=== PATIENT | male | born 1940 | race Caucasian/White ===

== ENCOUNTER 2016-10-22 08:18 | Inpatient (IN) | payer OTHER, MEDICARE ==
[~2016-10-22] VITALS: Ht 182.9 cm; Wt 122.5 kg
--- NOTE | 2016-10-22 08:27 | ED AMS/SEIZURE/WEAK/DIZZY ---
History of Present Illness General Chief Complaint: General Adult Stated Complaint: FALL/DEPRESSED/ Source: patient, family, EMS Exam Limitations: no limitations Vital Signs & Intake/Output Vital Signs & Intake/Output Vital Signs Date Time Temp Pulse Resp B/P B/P Pulse O2 O2 Flow FiO2 Mean Ox Delivery Rate 10/24 2200 97.8 67 18 158/68 94 Room Air 10/24 1600 99.2 70 20 132/84 10/24 1600 94 Room Air 10/24 1515 99.2 70 20 132/84 94 Room Air 10/24 0924 73 157/68 10/24 0800 98.7 84 20 130/62 ED Intake and Output 10/25 0000 10/24 1200 Intake Total 1240 550 Output Total 900 350 Balance 340 200 Intake, IV 450 Intake, Oral 1240 100 Number 1 Bowel Movements Output, Urine 900 350 Allergies Coded Allergies: ciprofloxacin (From C[facility]RO) (UNKNOWN 10/22/16) vancomycin (UNKNOWN 10/22/16) Triage Nurses Notes Reviewed? 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 we'll to get up. EMS states that while patient was being transported to ER he was stating "I want to I want to ." Patient on initial examination was very tearful and complaining of pain all over however patient in state that there was no traumatic injury that occurred today. also states that patient has not been eating well lately and has had black dark stools. Patient denies any fever chills headaches neck pain back pain abdominal pain chest pain shortness of breath cough nausea or vomiting. Again patient is stating that "I don't want to live anymore" Patient had been on the ground for approximate 5 minutes (VIANNEY BLACK) Reconcile Medications Baclofen 10 MG TABLET 1 TAB PO DAILY MUSCLE SPASMS (Reported) Digoxin 125 MCG TABLET 1 TAB PO DAILY HEART (Reported) Doxazosin Mesylate 2 MG TABLET 1 TAB PO DAILY HEART (Reported) Folic Acid 1 MG TABLET 1 TAB PO DAILY SUPPLEMENT (Reported) Mupirocin 2 % OINT...G. 1 GARY TOP D SKIN PROBLEMS (Reported) apply to affected area(s): LEFT SCAPULA AREA GROWTH Spironolactone 50 MG TABLET 1 TAB PO DAILY WATER RETENTION (Reported) Warfarin Sodium 2 MG TABLET 1 TAB PO 1700 BLOOD THINNER (Reported) (BETHEL RUTLEDGE DO) Past History Travel History Traveled to [place] past 21 day No Medical History Any Pertinent Medical History? see below for history Neurological: NONE EENT: NONE Cardiovascular: AFIB, hypertension Respiratory: NONE Gastrointestinal: NONE Hepatic: NONE Renal: NONE Musculoskeletal: NONE Psychiatric: NONE Endocrine: NONE Blood Disorders: NONE Cancer(s): NONE PUBLIC WORKS MANAGER/Reproductive: NONE Surgical History Surgical History: LEFT BKA Psychosocial History What is your primary language Kinyarwanda Tobacco Use: Never used ETOH Use: denies use Illicit Drug Use: denies illicit drug use Family History Hx Contributory? No (VIANNEY BLACK) Review of Systems Review of Systems Constitutional: Reports: see HPI, malaise, weakness. EENTM: Reports: no symptoms. Respiratory: Reports: no symptoms. Cardiovascular: Reports: no symptoms. GI: Reports: see HPI, changes in stool. Genitourinary: Reports: no symptoms. Musculoskeletal: Reports: no symptoms. Skin: Reports: no symptoms. Neurological/Psychological: Reports: no symptoms. Hematologic/Endocrine: Reports: no symptoms. Immunologic/Allergic: Reports: no symptoms. All Other Systems: Reviewed and Negative (VIANNEY BLACK) Physical Exam Physical Exam General Appearance: anxious, mild distress, TEARFUL Head: atraumatic Eyes: Bilateral: normal appearance, PERRL. Ears, Nose, Throat: hearing grossly normal Neck: normal inspection Respiratory: normal breath sounds, chest non-tender Cardiovascular: irregularly irregular Gastrointestinal: normal bowel sounds, soft, non-tender, no organomegaly Rectal: heme negative stool, black stool Extremities: LEFT BKA WITH PROSTHETIC Neurologic/Psych: awake, alert Diagram Body: 1) 2 CM OPEN SKIN ULCER WITH PRONOUNCE PINK SOFT TISSUE, NO TENDERNESS, D/C OR SURROUNDING ERYTHEMA 2) NOTE SUPERFICIAL SKIN ABRASION, AND BRUISING NONTENDER, NO ACTIVE BLEEDING Core Measures ACS in differential dx? No CVA/TIA Diagnosis: No Severe Sepsis Present: No Septic Shock Present: No (KRYSTLE MARES,VIANNEY) Progress Differential Diagnosis: arrythmia, alcohol intoxication, anemia, benign positional vertigo, CVA/stroke, dehydration, drug intoxication, encephalitis, electrolyte imbalance, GI bleed, hypoglycemia, hypoxia, intracranial Hem., intracranial mass/tumor, labrynthitis, meningitis, Meniere's disease, migraine ZAVALETA, multiple sclerosis, pneumonia, postural hypotension, presyncope, post- traumatic vertigo, sepsis, seizure disorder, subarachnoid Hem., UTI/pyelo, vertebrobasilar insuff Plan of Care: Orders Procedure Date/time Status PROTHROMBIN TIME 10/25 0600 Active Continuous Observation Monitor 10/25 0018 Active Precautions 10/24 205 Active LACTIC ACID 10/24 1056 Complete Lab Add-on Test 10/24 UNK Active THYROID STIMULATING HORMONE 10/23 0635 Complete TOTAL TRIODOTHYROXINE 10/23 0635 Complete FREE T4 10/23 0635 Complete Current Medications Sig/Rush Start time Last Medication Dose Stop Time Status Admin Melatonin 5 MG AT BEDTIME 10/24 2200 AC 10/24 (Melatonin) 2331 Cyanocobalamin 1,000 MCG DAILY 10/24 1052 AC 10/24 (Vitamin B12) 1234 Mupirocin 1 GARY DAILY 10/23 1445 AC 10/24 (Bactroban) 0929 Digoxin 0.125 MG DAILY 10/23 1000 AC 10/24 (Lanoxin) 0924 Spironolactone 50 MG DAILY 10/23 1000 AC 10/24 (Aldactone) 0923 Morphine Sulfate 2 MG Q4 PRN 10/23 0350 AC 10/25 (Morphine) 0623 Lorazepam 0 Q1P PRN 10/22 2230 AC 10/22 (Ativan) 2302 Nystatin 1 GARY TID PRN 10/22 2215 AC 10/23 (Mycostatin) 0830 Tramadol HCl 50 MG Q4P PRN 10/22 1415 AC 10/25 (Ultram) 0107 Doxazosin Mesylate 2 MG DAILY 10/22 1339 AC 10/24 (Cardura) 0924 Acetaminophen 650 MG Q6PRN PRN 10/22 1145 AC 10/22 (Tylenol) 2041 Laboratory Tests 10/24/16 1300: Lactic Acid 1.3 On initial examination patient was significantly in distress and anxious however no traumatic injury has occurred. After morphine was administered patient is still anxious and in distress in which Ativan will be administered. Patient's bilateral upper extremity and lower extremities were unremarkable on exam Patient's physical exam findings were unremarkable upon palpation for concerns of fracture 10/22/2016 10:28:14 AM reevaluation the patient, patient currently is in no apparent distress and is no longer anxious and is resting comfortably at bedside. Patient had dark stools noted however fecal occult was negative There was sitter placed on patient due to suicide ideation, Patient was able to eat a meal in the emergency room and patient was given IV fluid resuscitation. Patient had improvement of lactic acidosis however is still elevated. Patient then tried to ambulate under nursing supervision in my supervision however he was able to weight bear however was unable to perform gait in which he has significant gait instability and fall risk Patient is unsafe to return home and his current medical condition has made patient unable to perform home ADL'S Due to patient's elevated lactic acidosis and concern of fall risk that outpatient treatment would be medically harmful. Patient also requires inpatient psychiatric evaluation, case management, nutrition consultation, physical therapy consultation, repeat labs, IV fluid resuscitation, (VIANNEY BLACK) Diagnostic Imaging: Viewed by Me: Radiology Read. CXR Impression: no acute abnormality, no infiltrates, normal size heart Initial ED EKG: AFIB, AFIB Comments: PATIENT: SCOTT RODRÍGUEZ PRESENT AGE: 76 PATIENT ACCOUNT NO: [id number] : 42 LOCATION: [facility] ORDERING PHYSICIAN: VIANNEY MARES SERVICE DATE: 10/22/16 EXAM TYPE: RAD - XRY-PORTABLE CHEST XRAY EXAMINATION: XR PORTABLE CHEST CLINICAL INFORMATION: Weakness COMPARISON: 02/24/2011 TECHNIQUE: Portable frontal view of the chest was obtained. FINDINGS: The lungs are well expanded. There is a hazy opacity at the left lung base. No edema or effusion. No dense consolidation.. No pneumothorax. The cardiomediastinal silhouette is within normal limits. No acute osseous abnormality. IMPRESSION: Hazy left basilar opacity favors atelectasis. No dense consolidation. (VIANNEY BLACK) Departure Departure Disposition: STILL A PATIENT Condition: Critical Clinical Impression Primary Impression: Lactic acidosis Secondary Impressions: Fall, Gait instability, Skin abrasion, Suicide ideation Referrals: SHEIKH Troy NORMAN (PCP) Departure Forms: Customer Survey General Discharge Information Admission Note Spoke With: KAVYA WEBBER MD Documentation of Exam: Documentation of any treatments & extenuating circumstances including Concerns Regarding Discharge (functional status, medication knowledge or non-compliance, living conditions, etc.) that warrant an admission rather than observation: [ Discussed patient with Dr. WEBBER who agrees with general medicine admission for concerns of lactic acidosis, gait instability and fall risk in which patient requires repeat labs, IV fluid resuscitation, psychiatric evaluation, attritional consultation, physical therapy consultation outpatient treatment at this time due to considerable fall risk would be medically harmful] (VIANNEY BLACK) Admission Note Documentation of Exam: Documentation of any treatments & extenuating circumstances including Concerns Regarding Discharge (functional status, medication knowledge or non-compliance, living conditions, etc.) that warrant an admission rather than observation: PA/[employer] Co-Sign Statement Statement: ED Attending supervision documentation- [X] I saw and evaluated the patient. I have also reviewed all the pertinent lab results and diagnostic results. I agree with the findings and the plan of care as documented in the PA's/FORE[employer]TY COOK's documentation. [] I have reviewed the ED Record and agree with the PA's/FORE[employer] COOK's documentation. [] Additions or exceptions (if any) to the PAs/FORE[employer]OD SPECIALTY COOK's note and plan are summarized below: [] (MATY PATTERSON,BETHEL Small) Critical Care Note Critical Care Note Critical Care Time: 30-74 min (VIANNEY BLACK) inpatient psychiatric evaluation, case management, nutrition consultation, physical therapy consultation, repeat labs, IV fluid resuscitation, (VIANNEY BLACK) Diagnostic Imaging: Viewed by Me: Radiology Read. CXR Impression: no acute abnormality, no infiltrates, normal size heart Initial ED EKG: AFIB, AFIB Comments: PATIENT: SCOTT RODRÍGUEZ PRESENT AGE: 76 PATIENT ACCOUNT NO: [id number] : 42 LOCATION: [facility] ORDERING PHYSICIAN: VIANNEY MARES SERVICE DATE: 10/22/16-1018 EXAM TYPE: RAD - XRY-PORTABLE CHEST XRAY EXAMINATION: XR PORTABLE CHEST CLINICAL INFORMATION: Weakness COMPARISON: 02/24/2011 TECHNIQUE: Portable frontal view of the chest was obtained. FINDINGS: The lungs are well expanded. There is a hazy opacity at the left lung base. No edema or effusion. No dense consolidation.. No pneumothorax. The cardiomediastinal silhouette is within normal limits. No acute osseous abnormality. IMPRESSION: Hazy left basilar opacity favors atelectasis. No dense consolidation. Departure Departure Disposition: STILL A PATIENT Condition: Critical Clinical Impression Primary Impression: Lactic acidosis Secondary Impressions: Fall, Gait instability, Skin abrasion, Suicide ideation Referrals: SHEIKH Troy NORMAN (PCP) Departure Forms: Customer Survey General Discharge Information Admission Note Spoke With: KAVYA WEBBER MD Documentation of Exam: Documentation of any treatments & extenuating circumstances including Concerns Regarding Discharge (functional status, medication knowledge or non-compliance, living conditions, etc.) that warrant an admission rather than observation: [ Discussed patient with Dr. WEBBER who agrees with general medicine admission for concerns of lactic acidosis, gait instability and fall risk in which patient requires repeat labs, IV fluid resuscitation, psychiatric evaluation, attritional consultation, physical therapy consultation outpatient treatment at this time due to considerable fall risk would be medically harmful] Critical Care Note Critical Care Note Critical Care Time: 30-74 min
--- NOTE | 2016-10-22 08:38 | NUR ---
76 YEAR OLD MALE TO ER VIA AMBULANCE FROM HIS HOME AFTER A FALL. PT NOTED TO BE CRYING ON ARRIVAL AND STATES THAT HE JUST WANTS TO . PT NOTED WITH PROSTESIS TO LLE FROM [facility] IN 2008. PT WAS TRYING TO TRANSFER FROM WHEEL CHAIR WHEN HE SLIPPED AND FELL TO THE FLOOR, DENIES HITTING HIS HEAD. STATES THAT FOR THE PAST WEEK PT HAS HAD NO APPETITE HAS BEEN CRYING NON STOP AND PRAYING TO GOD TO " PLEASE LET ME ". PTS VISIBLY UPSET AND CRYING . DENIES CP/SOB/ABD PAIN TO THIS NURSE
[2016-10-22] MEDS ORDERED: BACLOFEN10 M1 PO (08:41)
[2016-10-22] MEDS ORDERED: WARFARIN SODIUM2 M1 PO (08:41)
[2016-10-22] MEDS ORDERED: DIGOXIN125 MCG PO (08:42)
[2016-10-22] MEDS ORDERED: FOLIC ACID1 M1 PO (08:42)
[2016-10-22] MEDS ORDERED: DOXAZOSIN MESYLA2 M1 PO (08:42)
[2016-10-22] MEDS ORDERED: SPIRONOLACTONE50 M1 PO (08:43)
--- NOTE | 2016-10-22 09:08 | NUR ---
IV PLACED AND PT MEDICATED WITH MORPHINE PER ORDER FOR COMPLAINTS OF 10/10 ALL OVER BODY PAIN. REMAINS AT BEDSIDE
[2016-10-22 09:28] LABS: ABSOLUTE BASOPHIL COUNT 0 /CUMM (0.0-0.2); ABSOLUTE EOSINOPHIL COUNT 0.1 /CUMM (0.0-0.7); ABSOLUTE GRANULOCYTE CT 4.1 /CUMM (1.4-6.5); ABSOLUTE LYMPH COUNT 1.9 /CUMM (1.2-3.4); ABSOLUTE MONOCYTE COUNT 0.6 /CUMM (0.10-0.60); BASOPHIL % 0.6 % (0.0-2.0); EOSINOPHIL % 1.3 % (0-5); GRANULOCYTE % 61.5 % (42.2-75.2); HEMATOCRIT 41.9 % (42-52); MEAN CORPUSCULAR HGB 31.4 PG (27.0-31.0); MEAN CORPUSCULAR HGB CONC 33.2 G/DL (33.0-37.0); MEAN CORPUSCULAR VOLUME 94.3 FL (80.0-94.0); MEAN PLATELET VOLUME 7.6 FL (7.4-10.4); PLATELET COUNT 249 /CUMM (130-400); RBC DISTRIBUTION WIDTH 16.2 % (11.5-14.5); RED BLOOD CELL CT 4.44 /CUMM (4.70-6.10); WHITE BLOOD CELL COUNT 6.7 /CUMM (4.8-10.8)
[2016-10-22 09:41] LABS: PTT 58 SEC (25-37)
--- NOTE | 2016-10-22 09:43 | NUR ---
PT MOVED TO EKG [place] TO USE URINAL AT THIS TIME.
--- NOTE | 2016-10-22 09:49 | NUR ---
CRITICAL TEST RESULTS [id number] SCOTT RODRÍGUEZ 76 M TESTS AND RESULTS: PT 59.0 INR 5.72 Results received and read back by: EDUARDO GRANADOS Results received date and time: 10/22/16 0949 The following provider was notified of the results, and read the results back: VIANNEY MARES Notified date and time: 10/22/16 at 0949
--- NOTE | 2016-10-22 10:12 | NUR ---
CRITICAL TEST RESULTS [id number] SCOTT RODRÍGUEZ 76 M TESTS AND RESULTS: LACTIC ACID 4.9 Results received and read back by: MICHELLE MENDIETA Results received date and time: 10/22/16 1012 The following provider was notified of the results, and read the results back: SUZAN DALTON & ARYAN CLAIRE Notified date and time: 10/22/16 at 1012
--- NOTE | 2016-10-22 10:20 | NUR ---
PT MEDICATED WITH ATIVAN PER ORDER FOR INCREASED ANXIETY, PT CONTINUES TO CRY AND STATES " I JUST WANT TO " SITTER WITH PT AND PTS AT BEDSIDE AT THIS TIME. PA DISCUSSED PLAN OF CARE WITH PT
--- NOTE | 2016-10-22 10:31 | NUR ---
2ND LITER NS BOLUS INFUSING AT THIS TIME. PT TRYING TO VOID IN URINAL. REMAINS AT BEDSIDE
--- NOTE | 2016-10-22 10:40 | RADIOLOGY REPORT ---
EXAMINATION: XR PORTABLE CHEST CLINICAL INFORMATION: Weakness COMPARISON: 02/24/2011 TECHNIQUE: Portable frontal view of the chest was obtained. FINDINGS: The lungs are well expanded. There is a hazy opacity at the left lung base. No edema or effusion. No dense consolidation.. No pneumothorax. The cardiomediastinal silhouette is within normal limits. No acute osseous abnormality. IMPRESSION: Hazy left basilar opacity favors atelectasis. No dense consolidation.
--- NOTE | 2016-10-22 11:24 | NUR ---
HOUSE STAFF AT [facility], PT NOTED WITH A 2 X2.5 CM GROWTH TO L UPPER SHOULDER THAT HAS SMALL AMOUNT OF BLOODY DRAINAGE, STATES THAT PT WAS SEEN 4 MONTHS AGO FOR THIS AND WAS TOLD TO FOLLOW UP WITH A SIEBEL SOLUTION ARCHITECT, STATES THAT SHE HAS BEEN UNABLE TO DO THIS. PT ALSO NOTED WITH BRUISING TO R SIDE BACK, IS UNSURE IF IT HAPPENED THIS AM WHEN PT FELL TRANSFERRING. PT SKIN VERY DRY AND NOTED WITH MULTIPLE SCABBED SCRATCH POWELL ALL OVER BODY , COMPLAINS OF DRY SKIN.
--- NOTE | 2016-10-22 11:49 | NUR ---
SECOND LACTIC SENT AT 1146.
--- NOTE | 2016-10-22 11:57 | History & Physical ---
ALYSSA MOSHER 10/22/16 1157: General Information and HPI MD Statement: I have seen and personally examined SCOTT BOYER and documented this H&P. The patient is a 76 year old M who presented with a patient stated chief complaint of fall Source of Information: family Exam Limitations: unable to give history, dementia History of Present Illness: 76-year-old gentleman with past medical history significant for dementia, hypertension, A. fib on Coumadin, neuropathy, severe peripheral vascular disease status post right leg above-knee amputation in 2008. BiBA for evaluation of unwitnessed fall. provided majority of the history as patient was not able to remember much. Earlier today when he was transferring from the chair to his wheelchair apparently his leg gave way and he fell. Denies loss of consciousness, dizziness, palpitations, head strike. His witnessed the entire episode. She called the son to help him up. About a week ago he had a similar fall however at that time felt that he was more confused. seems to think that he might have had TIA in the past specifically in May of this year when he had a transient episode of speech disturbances. However patient did not wish to follow-up with her doctor regarding this. Family has noticed a progressive worsening weakness since the past year however it has been more remarkable since past 1 week. One week prior he was ambulating with a cane. He reports very poor appetite specifically since the past 3 days. He has only been drinking alcohol daily. His last drink was 3 PM yesterday where he had 89 ounces 04, and 2-3 glasses of wine. He is a chronic drinker however has never been admitted for detox at any hospital and no history of DTs or seizures. He has also not taken any of his regular medications since the past 3 days. Also reports also 2 week history of black stools, denies bright red blood per rectum, abdominal pain, nausea, vomiting, fever, chills. Per family as well as the patient he is very calm very severely depressed and often times prays at night that he may . Denies any active suicidal ideations or any active plans to harm himself or others. His had most of his care with Dr. Clemons who is a rim fire priming operator at [employer], His is also concerned about a growth on his back of 4 months duration. She is also his only primary caregiver and they have no services at home as the patient refuses to have any. She is under a lot of stress at this time and feel like she is unable to take care of him. is POA and she can be reached at [phone] Allergies/Medications Allergies: Coded Allergies: ciprofloxacin (From CIPRO) (UNKNOWN 10/22/16) vancomycin (UNKNOWN 10/22/16) Compliance With Home Meds: POOR Past History Travel History Traveled to [place] past 21 day No Medical History Neurological: NONE EENT: NONE Cardiovascular: AFIB, hypertension Respiratory: NONE Gastrointestinal: NONE Hepatic: NONE Renal: NONE Musculoskeletal: NONE Psychiatric: NONE Endocrine: NONE Blood Disorders: NONE Cancer(s): NONE SENIOR INTERNET SALES CONSULTANT/Reproductive: NONE Isolation History: Standard Surgical History Surgical History: LEFT BKA Past Family/Social History Psychosocial History ETOH Use: alcoholic Illicit Drug Use: denies illicit drug use Name of POA/HCP: sofia boyer Functional Ability ADLs Needs Assist: dressing, eating, toileting, bathing. Ambulation: walker IADLs Needs Assist: shopping, housework, finances, food prep, telephone, transportation, medication admin. Employment History Employment Retired Review of Systems Review of Systems Constitutional: Denies: chills, diaphoresis, fever, malaise, weakness, unexplained weight loss. Cardiovascular: Denies: chest pain, edema, orthopena, palpitations, peripheral edema, syncope. Respiratory: Denies: cough, hemoptysis, orthopnea, short of breath, sputum production, stridor, wheezing. GI: Reports: changes in stool. Denies: abdominal pain, bloating, constipation, diarrhea, distention, bowel incontinence, melena, nausea, bloody stool, vomiting , steatorrhea. Genitourinary: Denies: discharge, dysuria, frequency, hematuria, hesitation, nocturia, pain, urgency. Skin: Reports: cysts. Exam & Diagnostic Data Last 24 Hrs of Vital Signs/I&O Vital Signs Date Time Temp Pulse Resp B/P B/P Pulse O2 O2 Flow FiO2 Mean Ox Delivery Rate 10/22 1459 97.5 76 18 131/62 96 Room Air 10/22 1453 97.5 76 18 131/62 10/22 1401 95 Room Air 10/22 1242 97.9 68 18 136/72 96 Room Air 10/22 1113 95 Room Air 10/22 1020 97.2 70 20 146/62 95 Room Air 10/22 0910 95 Room Air 10/22 0835 96.6 72 18 150/70 96 Intake & Output 10/22 1600 10/22 0800 10/22 0000 Intake Total 3150 Output Total Balance 3150 Intake, IV 3150 Intake, Oral 0 Patient 250 lb Weight Physical Exam General Appearance Alert, Oriented X3, Cooperative, No Acute Distress HEENT sluggishly reactive and small pupils Neck Supple Cardiovascular Normal S1, Normal S2, No Murmurs Lungs Clear to Auscultation, Normal Air Movement Abdomen Normal Bowel Sounds, Soft, No Tenderness Neurological Normal Speech, Strength at 5/5 X4 Ext, Cranial Nerves 3-12 NL, flapping tremor Extremities No Edema, Normal Pulses Last 24 Hrs of Labs/Calixto: Laboratory Tests 10/22/16 1551: 25-OH Vitamin D Total Pending 10/22/16 1146: Lactic Acid 3.9 H 10/22/16 1140: Lactate Dehydrogenase Cancelled 10/22/16 0950: Urine Opiates Screen 673.00, Methadone Screen < 40, Barbiturate Screen < 60, Ur Phencyclidine Scrn < 6.00, Amphetamines Screen < 100, U Benzodiazepines Scrn < 85, Urine Cocaine Screen < 50, Urine Cannabis Screen < 5.00, Urine Color STRAW, Urine Clarity CLEAR, Urine pH 6.0, Ur Specific Serena 1.010, Urine Protein NEG, Urine Ketones NEG, Urine Nitrite NEG, Urine Bilirubin NEG, Urine Urobilinogen 0.2, Ur Leukocyte Esterase NEG, Ur Microscopic EXAM NOT REQUIRED, Urine Hemoglobin NEG, Urine Glucose NEG 10/22/16 0905: Lactic Acid 4.9 H, PT 59.0 *H, INR 5.72 *H, APTT 58 H, CBC w Diff NO MAN DIFF REQ, RBC 4.44 L, MCV 94.3 H, MCH 31.4 H, RDW 16.2 H, MPV 7.6, Gran % 61.5, Lymphocytes % 28.0, Monocytes % 8.6, Eosinophils % 1.3, Basophils % 0.6, Absolute Granulocytes 4.1, Absolute Lymphocytes 1.9, Absolute Monocytes 0.6, Absolute Eosinophils 0.1, Absolute Basophils 0, PUBS MCHC 33.2, Digoxin < 0.4 L 10/22/16 0824: Anion Gap 18 H, Estimated GFR > 60, BUN/Creatinine Ratio 10.0, Glucose 110 H, Calcium 8.9, Total Bilirubin 0.7, AST 34, ALT 39, Alkaline Phosphatase 57, Troponin I 0.01, Total Protein 6.5, Albumin 3.7, Globulin 2.8, Albumin/Globulin Ratio 1.3, Amylase < 30 L, Lipase 81, Serum Alcohol 209.0, Urine Color Cancelled, Urine Clarity Cancelled, Urine pH Cancelled, Ur Specific Serena Cancelled, Urine Protein Cancelled, Urine Ketones Cancelled, Urine Nitrite Cancelled, Urine Bilirubin Cancelled, Urine Urobilinogen Cancelled, Ur Leukocyte Esterase Cancelled, Ur Microscopic Cancelled, Urine Hemoglobin Cancelled, Urine Glucose Cancelled Microbiology 10/22 0950 URINE ROUT: Urine Culture - RECD 10/22 904 BLOOD: Blood Culture - RECD 10/22 08 BLOOD: Blood Culture - RECD Diagnostic Data EKG Results afib, qtc 454 CXR Results FINDINGS: The lungs are well expanded. There is a hazy opacity at the left lung base. No edema or effusion. No dense consolidation.. No pneumothorax. The cardiomediastinal silhouette is within normal limits. No acute osseous abnormality. IMPRESSION: Hazy left basilar opacity favors atelectasis. No dense consolidation. Other Results SERVICE DATE: 10/22/16 EXAM TYPE: CAT - CT HEAD WO IV CONTRAST FINDINGS: There is no evidence of acute intracranial hemorrhage or territorial infarction. No abnormal mass effect or midline shift is seen. Maurice to white matter differentiation is well preserved. No extra-axial fluid collections are identified. No hydrocephalus. Proportional prominence of the ventricles and sulcal spaces is consistent with mild volume loss. There is no abnormal attenuation within the brain parenchyma. The osseous structures and soft tissues are normal. The mastoid air cells and visualized portions of the paranasal sinuses are well aerated. IMPRESSION: No acute intracranial pathology. Mild volume loss. Assessment/Plan Assessment: 76-year-old gentleman with past medical history significant for dementia, hypertension, A. fib on Coumadin, neuropathy, severe peripheral vascular disease status post right leg above-knee amputation in 2008. BiBA for evaluation of unwitnessed fall. Vitals on admission MAXIMUM TEMPERATURE 97.6 heart rate 70 blood pressure 1 46/ 62, saturating 95% on room air. Lab significant for hyponatremia, increased anion gap metabolic acidosis increased lactic acid supratherapeutic INR at 5.7 to, troponin negative normal LFTs. EKG showed A. fib with a QTC of 454. Chest x-ray and CT head were unremarkable. He will be admitted to the general medicine floor on the following issues will be addressed: As Ranked By This Provider Problem List: 1. Gait instability Assessment/Plan D/D deconditioning exacerbated by decreased by mouth intake and alcoholism versus vascular versus Alzheimer's dementia colostomy secondary to worsening of his neuropathy. Will follow-up CT head to rule out any bleed Follow-up vitamin D vitamin B12 PT to evaluate and treat 2. Lactic acidosis Assessment/Plan Metabolic acidosis with increased anion gap Most likely type B lactic acidosis as there is no clinical indication of sepsis or HF, most likely secondary to his alcoholism vs hypoperfusion (less likely as clinical euvolemic) Will hydrated and continue to trend lactic acid 3. A-fib Assessment/Plan will hold coumadin 2/2 to supratherapeutic INR, follow up INR daily continue home dose of digoxin Qualifiers Atrial fibrillation type: chronic Qualified Code: I48.2 - Chronic atrial fibrillation 4. EtOH dependence Assessment/Plan IV ativan per CIWA will start IV banana bag and MVI f/up utox 5. Severe depression Assessment/Plan will obtain psych consult does not need 1:1 sitter as he is not actively suicidal 6. Skin lesion Assessment/Plan 2cm x 2cm friable exophytic pinkish leision on right upper shouler will need to be evaluated by dermatology, which can be done as outpatient 7. DVT prophylaxis Assessment/Plan supratherapeutic INR ALPs 8. DNR (do not resuscitate) 9. DNI (do not intubate) Core Measures/Miscellaneous Acute Coronary Syndrome ACS Diagnosis: No Cerebrovascular Accident CVA/TIA Diagnosis: No Congestive Heart Failure CHF Diagnosis: No VTE (View Protocol) VTE Risk Factors: Age > 40, Immobility, paresis, Obesity No Mech VTE prophylaxis d/t: Amputee No VTE Pharm Prophylaxis d/t: Blood coag disorder, HIT- Hep Induc Thrombo VTE Diagnosis: No VTE Type: NONE VTE Confirmed by (Test): NONE Sepsis (View Protocol) Severe Sepsis Present: No Septic Shock Septic Shock Present: No Miscellaneous Documentation Attending Case Discussed With: CONNER PALACIOS M.D Primary Care Physician: SHEIKH Troy NORMAN Patient sees these Specialists none Level of Patient Care: General Medicine CONNER PALACIOS MD 10/22/16 1048: General Information and HPI Allergies/Medications Home Med list Baclofen 10 MG TABLET 1 TAB PO DAILY MUSCLE SPASMS (Reported) Digoxin 125 MCG TABLET 1 TAB PO DAILY HEART (Reported) Doxazosin Mesylate 2 MG TABLET 1 TAB PO DAILY HEART (Reported) Folic Acid 1 MG TABLET 1 TAB PO DAILY SUPPLEMENT (Reported) Mupirocin 2 % OINT...G. 1 GARY TOP D SKIN PROBLEMS (Reported) apply to affected area(s): LEFT SCAPULA AREA GROWTH Spironolactone 50 MG TABLET 1 TAB PO DAILY WATER RETENTION (Reported) Warfarin Sodium 2 MG TABLET 1 TAB PO 1700 BLOOD THINNER (Reported) Attending MD Review Statement Attending Statement Attending MD Statement: examined this patient, discuss w/resident/PA/WASHING MACHINE OPERATOR, agreed w/resident/PA/WASHING MACHINE OPERATOR, reviewed EMR data (avail), discussed with nursing, discussed with case mgmt, amended to note Attending Assessment/Plan: Patient seen and examined. Some 6-year-old male with history of atrial fibrillation on anticoagulation, neuropathy, status post left lower extremity amputation. Presents status post fall or transferring from his chair to walker according to the . Patient does not recollect circumstances that led to the fall. Denies any loss of consciousness. Denies any trauma. Family reports that he has become more deconditioned over the past few weeks with decreasing oral intake. reports that patient is significantly depressed. Initially make comments about suicide in the emergency room but stated that he is just frustrated with life. Patient denies any history of falls all the states he does fall on occasion. He denies dizziness. He denies palpitations. Denies chest pain. Reports poor oral intake. On examination he is alert and oriented 3 and not in any acute distress. He does have mild resting tremors. He has no focal neurologic deficit. Heart sounds are regular with no murmur. Lungs are clear to auscultation bilaterally. He has trace edema right lower extremity. Prosthetic is in place left lower extremity. Problems: 1. Fall; appears mechanical likely secondary to deconditioning. Patient also has underlying neuropathy and has been drinking alcohol heavily in the past few days. 2. Atrial fibrillation on anticoagulation with Coumadin. 3. Supratherapeutic INR. 4. Lactic acidosis; query etiology. Recommendations: -Admit to the inpatient general medical service. -Check orthostatic vitals. -Physical therapy and occupational therapy evaluation. Obtain baseline head CT. Obtain records from primary care provider. -Hold Coumadin for now. Monitor INR daily. -Hydrate with half normal saline at 1.5 mL an hour for 1 L. Repeat lactic acid level. -Place on CIWA scale with benzodiazepine therapy. Monitor closely for withdrawal. Check alcohol level. -Check vitamin B12 level. -Psychiatric consultation.
--- NOTE | 2016-10-22 12:39 | NUR ---
ATTEMPTED TO AMBULATE PATIENT. REPORTING "HE HASNT WALKED IN 2 WEEKS. HE TRIED TO STAND TODAY TO GET IN THE WHEELCHAIR AND HE FELL. I DONT SEE THE POINT". SUZAN DALTON INFORMED OF SAME.
--- NOTE | 2016-10-22 12:43 | NUR ---
CRITICAL TEST RESULTS [id number] SCOTT RODRÍGUEZ 76 M TESTS AND RESULTS: LACTIC ACID 3.9 Results received and read back by: EDUARDO GRANADOS Results received date and time: 10/22/16 1243 The following provider was notified of the results, and read the results back: Ladarius MARES Notified date and time: 10/22/16 at 1230
--- NOTE | 2016-10-22 12:58 | NUR ---
PT AMBULATED WITH WALKER, PT ABLE TO BARE WEIGHT BUT NOTED TO BE VERY UNSTEADY AND WEAK. PT TOOK A FEW STEPS WITH WALKER AND THEN STATED THAT HE NEEDED TO SIT DUE TO HE FELT SOB.
--- NOTE | 2016-10-22 13:59 | NUR ---
PHARMACY CALLED FOR MEDS. PT CONTINUES TO RE ST ON STRETCHER. IV FLUIDS INFUSING.
--- NOTE | 2016-10-22 14:09 | NUR ---
PT TO CT SCAN AT THIS TIME VIA WHEEL CHAIR.
--- NOTE | 2016-10-22 14:16 | NUR ---
PHARMACY WILL CALL WHEN MEDS ARE READY
--- NOTE | 2016-10-22 14:30 | CT SCAN REPORT ---
EXAMINATION: CT HEAD WITHOUT CONTRAST CLINICAL INFORMATION: Confusion. Rule out bleed. COMPARISON: None. TECHNIQUE: Contiguous axial imaging was performed from the skull base to vertex without intravenous contrast. DLP: 729 mGy-cm. FINDINGS: There is no evidence of acute intracranial hemorrhage or territorial infarction. No abnormal mass effect or midline shift is seen. Maurice to white matter differentiation is well preserved. No extra-axial fluid collections are identified. No hydrocephalus. Proportional prominence of the ventricles and sulcal spaces is consistent with mild volume loss. There is no abnormal attenuation within the brain parenchyma. The osseous structures and soft tissues are normal. The mastoid air cells and visualized portions of the paranasal sinuses are well aerated. IMPRESSION: No acute intracranial pathology. Mild volume loss.
--- NOTE | 2016-10-22 14:39 | NUR ---
CRISIS AT BEDSIDE AT THIS TIME
--- NOTE | 2016-10-22 15:23 | Cons- Psychiatry ---
See Addendum Psychiatric Consult Date of Consult: 10/22/16 Reason for Consult: severe depression Dr. Park attending History of Present Illness: Identifying Info: 76-year-old male presents to [facility] emergency department by ambulance status post fall on 10/22/2016. Interviewed in the emergency department. CC: "Sometimes I get melancholy" HPI: Patient's , Martina, at bedside for interview, the patient often relies on her to provide history because he cannot recall details of recent past. Patient had a fall today while attempting to transfer to wheelchair. Per EMS report while he was being transported he continued to state "I want to ," and was extremely tearful. He continued to be tearful in the emergency department until medicated with morphine and Ativan. His reports that over the last week he has not been walking, has been increasingly weak, has not been eating, has been crying frequently and praying that the Lord would kill him, often stating "please let me ." The patient attributes his current mental status to physical decline and the loss of his lower leg. 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 He states he often thinks about how he wishes she just had a normal body. He is extremely frustrated with his physical limitations. The patient denies wanting to hurt himself. He is not actively suicidal but continues to endorse passive suicidality stating that "it would be okay if the Lord took me." He has no history of suicide attempt, no family close friends have committed suicide. He does have a shotgun at home but states he would not use it to harm himself. Patient's reports for the last 4 years he's had severe memory issues. He often cannot recall if he has eaten a meal or not. There have been multiple instances with the patient has gone to a doctor's appointment and forgotten he had been there at all later in the day. On one occasion 2 years ago he was driving on familiar streets and got completely lost he had to pull worker and it took a considerable amount of time until he could remember where he was where he was going. He's been referred to neurology and did not keep appointments on 3 separate occasions. Patient reports and confirms that every night he has 4-5 shots of vodka and a few glasses of wine. He has done this for a long period of time, he cannot recall how long. PMH: Please see the H&P for a complete listing Atrial fibrillation currently on warfarin and digitoxin, hypertension and chronic pain, left below the knee amputation Past Psych History: Denies Family Psych History: Son - intellectual disabilities Substance History Currently consumes 6+ drinks nightly -Treatment None Family Substance History: Not obtained Social: . Resides with . 2 sons one who lives in the area and one who lives in a fdc. Formerly worked a [employer]. Former [employer], no combat exposure. Abuse/Trauma: Loss of lower left leg to aputation. Current Home Psychotropic Medications: None Current Hospital Psychotropic Medications: Med Lorazepam IV Q1P PRN 10/22/16 1345 Allergies: Coded Allergies: ciprofloxacin (From CIPRO) (UNKNOWN 10/22/16) vancomycin (UNKNOWN 10/22/16) Current Medications: Current Medications Sig/Rush Start time Last Medication Dose Route Stop Time Status Admin Acetaminophen 650 MG Q6PRN PRN 10/22 1145 AC PO Cyanocobalamin/ 1 BAG ONCE ONE 10/22 1345 AC 10/22 Thiamine/Pyridoxine IV 10/22 2144 1453 Sodium Chloride 1,000 ML Digoxin 0.125 MG DAILY 10/23 1000 AC PO Digoxin 0.125 MG DAILY 10/22 1339 DC 10/22 PO 1453 Doxazosin Mesylate 2 MG DAILY 10/22 1339 AC 10/22 PO 1453 Folic Acid 1 MG DAILY 10/22 1137 DC PO Lorazepam See Dose Q1P PRN 10/22 1345 AC Insts (1) IV Lorazepam 0 .STK-MED ONE 10/22 0946 DC .ROUTE Lorazepam 1 MG ONCE ONE 10/22 0930 DC 10/22 IV 10/22 09 0943 Morphine Sulfate 2 MG Q6-PRN PRN 10/22 1415 AC IV Morphine Sulfate 0 .STK-MED ONE 10/22 0907 DC .ROUTE Morphine Sulfate 4 MG ONCE ONE 10/22 0830 DC 10/22 IV 10/22 0831 0903 Sodium Chloride 1,000 ML .[id number] 10/22 1515 AC IV 10/23 1754 Sodium Chloride 1,000 ML BOLUS ONE 10/22 1245 DC 10/22 IV 10/22 1344 1300 Sodium Chloride 1,000 ML .[id number] 10/22 1145 DC 10/22 IV 10/23 1424 1213 Sodium Chloride 1,000 ML BOLUS ONE 10/22 1030 DC 10/22 IV 10/22 1229 1030 Sodium Chloride 1,000 ML BOLUS ONE 10/22 0830 DC 10/22 IV 10/22 1029 0903 Spironolactone 50 MG DAILY 10/23 1000 AC PO Thiamine HCl 100 MG DAILY 10/22 1138 DC PO Tramadol HCl 50 MG Q4P PRN 10/22 1415 AC PO Dose Instructions: (1)Lorazepam: See admin criteria Past History Past Medical History Neurological: NONE EENT: NONE Cardiovascular: AFIB, hypertension Respiratory: NONE Gastrointestinal: NONE Hepatic: NONE Renal: NONE Musculoskeletal: NONE Psychiatric: NONE Endocrine: NONE Blood Disorders: NONE Cancer(s): NONE RESEARCH CHIEF ENGINEER/Reproductive: NONE Past Surgical History Surgical History: LEFT BKA Psychosocial History Strengths/Capabilities: Supportive family, desire to feel better Physical Limitations (Interventions): Weakness, history of DKA Psychiatric Treatment History Psych Treatment Psychiatric Treatment No Risk Factors: age (under 24/over 65), access to lethal means, chronic/serious med cond., high anxiety/distress, substance abuse, weapons access, male Substance Use/Abuse History Drug Use/Abuse Substances Used/Abused Yes Substance Abuse Treatment Substance Abuse Treatment Past Substance Abuse [place] No Assessment/Plan Mental Status Mental Status Exam: Presentation/Appearance: Calm. Cooperative with evaluation. Hospital garb. Orientation: Oriented to self and place, year as 2011, cannot states date or month, unable to name current president Sensorium: Awake and alert Eye contact: Appropriate Affect: Blunted but congruent with stated mood Mood: "Melancholy" Depression: Endorses Anxiety: Denies Thought Content: - Endorses passive SI. States and also believes they will not kill themselves. - Denies HI, AH/VH, PI. - Denies Hopeless/Helpless Thoughts Thought Process: Linear, with some perseveration on amputation Associations: Appropriate Speech: Repetitive, patient often repeats her self Judgment: Fair Insight: Limited Cognition: Memory: Deficits noted Attention/Concentration: Intact, able to complete simple math spell world forwards and backwards Fund of Knowledge: Fair Abstractions: [place] MMSE: Did not complete Brief ROS Gait: Imapired Sleep: Poor Appetite: Poor Energy: Low IADLs/ADLs: With assist currently Lab Results: Laboratory Tests 10/22/16 1551: 25-OH Vitamin D Total Pending 10/22/16 1146: Lactic Acid 3.9 H 10/22/16 1140: Lactate Dehydrogenase Cancelled 10/22/16 0950: Urine Opiates Screen 673.00, Methadone Screen < 40, Barbiturate Screen < 60, Ur Phencyclidine Scrn < 6.00, Amphetamines Screen < 100, U Benzodiazepines Scrn < 85, Urine Cocaine Screen < 50, Urine Cannabis Screen < 5.00, Urine Color STRAW, Urine Clarity CLEAR, Urine pH 6.0, Ur Specific [place] 1.010, Urine Protein NEG, Urine Ketones NEG, Urine Nitrite NEG, Urine Bilirubin NEG, Urine Urobilinogen 0.2, Ur Leukocyte Esterase NEG, Ur Microscopic EXAM NOT REQUIRED, Urine Hemoglobin NEG, Urine Glucose NEG 10/22/16 0905: Lactic Acid 4.9 H, PT 59.0 *H, INR 5.72 *H, APTT 58 H, CBC w Diff NO MAN DIFF REQ, RBC 4.44 L, MCV 94.3 H, MCH 31.4 H, RDW 16.2 H, MPV 7.6, Gran % 61.5, Lymphocytes % 28.0, Monocytes % 8.6, Eosinophils % 1.3, Basophils % 0.6, Absolute Granulocytes 4.1, Absolute Lymphocytes 1.9, Absolute Monocytes 0.6, Absolute Eosinophils 0.1, Absolute Basophils 0, PUBS MCHC 33.2, Digoxin < 0.4 L 10/22/16 0824: Anion Gap 18 H, Estimated GFR > 60, BUN/Creatinine Ratio 10.0, Glucose 110 H, Calcium 8.9, Total Bilirubin 0.7, AST 34, ALT 39, Alkaline Phosphatase 57, Troponin I 0.01, Total Protein 6.5, Albumin 3.7, Globulin 2.8, Albumin/Globulin Ratio 1.3, Amylase < 30 L, Lipase 81, Serum Alcohol 209.0, Urine Color Cancelled, Urine Clarity Cancelled, Urine pH Cancelled, Ur Specific [place] Cancelled, Urine Protein Cancelled, Urine Ketones Cancelled, Urine Nitrite Cancelled, Urine Bilirubin Cancelled, Urine Urobilinogen Cancelled, Ur Leukocyte Esterase Cancelled, Ur Microscopic Cancelled, Urine Hemoglobin Cancelled, Urine Glucose Cancelled Microbiology 10/22 949 URINE ROUT: Urine Culture - RECD 10/22 0905 BLOOD: Blood Culture - RECD 10/22 0853 BLOOD: Blood Culture - RECD Diffential Diagnosis: Major depressive disorder versus depressive disorder due to another medical condition Unspecified neurocognitive disorder Alcohol use disorder Impression: 76-year-old male presents with passive suicidal ideation in the context of mourning the loss of function due to BKA, cognitive issues, and heavy drinking. As a white male with over the age of 65 with depression, substance abuse issues, and access to lethal means this patient has multiple risk factors for suicide. While not currently an imminent threat to himself he could be a future risk if he does not receive appropriate treatment. He would benefit from medication and ongoing psychotherapy Provisional Treatment Plan: 1. Please discontinue sitter. Patient is not actively suicidal. Low threshold to restart due to patient memory issues and potential for confusion due to ETOH withdrawl. 2. Patient states he will consider antidepressant medication. We'll continue to educate on treatment options. Plan to initiate medication once medically stable. We will also continue to encourage this patient to engage in psychotherapy. 3. Continue CIWA, vitamin supplementation, and ativan. 4. Please initiate neurology referral for memory issues, this may be completed on an outpatient basis. 5. Please continue to avoid benzodiazepines, opioid analgesics, and meds with strong anticholinergic properties as much as possible to prevent further confusion. 6. Please initiate the following nonpharmacologic interventions: -Avoid nursing and medical procedures during sleep hours whenever possible - Cluster at night interventions that must be completed as much as possible to minimize sleep disruption - Decrease noise patient area during sleeping hours - Reduce lighting at night - Ensure patient has any sensory aids close by that he regularly uses 7. Please rule out other physiological causes of depression including B vitamin deficiency, vitamin D deficiency, and thyroid issues. Thank you for including psychiatry in this case we'll continue to follow. A total of 60 minutes was spent with the patient with more than 50% of the time spent in counseling and/or coordination of care.
--- NOTE | 2016-10-22 15:41 | NUR ---
PT HAS ROOM 204-2
--- NOTE | 2016-10-22 15:51 | NUR ---
ASSUMED CARE OF PT, AT BEDSIDE. PT BOOSTED UP IN BED WITH ASSIST OF 2. OFFERS NO COMPLAINTS AT THIS TIME.
--- NOTE | 2016-10-22 15:54 | NUR ---
REPEAT SST SENT TO LAB
--- NOTE | 2016-10-22 16:31 | NUR ---
PT CALLED TO [facility] AND TRANSPORT BOOKED.
[2016-10-22 19:10] VITALS: BP 148/80
--- NOTE | 2016-10-22 21:35 | NUR ---
LATE ENTRY: 1714 PT ARRIVED ON FLOOR FROM ER. PT A&OX3, VSS, AFEBRILE, RA, LS CTA, +BS, NO DISTRESS. PT COMPLAINED OF PAIN 10/10 STATES "IT'S ALWAYS A 10". BANANA BAG INFUSING THROUGH #20 IN LH - SITE BLOODIED, DRESSING CHANGED. AT BEDSIDE. SITTER AT BEDSIDE DUE TO PT SI. SEE PSYCH EVAL. PT HAS GROWTH ON L SHOULDER 2CM IN DIAMETER. SEE SKIN MAN DOCUMENTATION. WOUND CARE CONSULT REQUESTED. ECCHYMOTIC AREAS TO R FLANK/BACK DUE TO FALL TODAY PER PT'S . YEAST IN ABDMN FOLDS. DIVISION MERCHANDISE MANAGER NOTIFIED, NYSTATIN ORDERED. PT ORIENTED TO ROOM AND FLOOR.
[2016-10-22 22:36] VITALS: BP 170/88
--- NOTE | 2016-10-23 05:34 | PN- Housestaff ---
ALYSSA MOSHER 10/23/16 0533: Subjective Follow-up For: Weakness Fall Subjective: Seen and examined patient. complains of generalized pain. Review of Systems Constitutional: Denies: chills, diaphoresis, fever, malaise, weakness, unexplained weight loss. Cardiovascular: Denies: chest pain, edema, orthopena, palpitations, peripheral edema, syncope. Respiratory: Denies: cough, hemoptysis, orthopnea, short of breath, sputum production, stridor, wheezing. Objective Last 24 Hrs of Vital Signs/I&O Vital Signs Date Time Temp Pulse Resp B/P B/P Pulse O2 O2 Flow FiO2 Mean Ox Delivery Rate 10/22 2236 99.0 77 19 170/88 95 Room Air 10/22 1910 98.2 79 21 148/80 96 Room Air 10/22 1730 96 Room Air 10/22 1459 97.5 76 18 131/62 96 Room Air 10/22 1453 97.5 76 18 131/62 10/22 1401 95 Room Air 10/22 1242 97.9 68 18 136/72 96 Room Air 10/22 1113 95 Room Air 10/22 1020 97.2 70 20 146/62 95 Room Air 10/22 0910 95 Room Air 10/22 0835 96.6 72 18 150/70 96 Intake & Output 10/23 0800 10/23 0000 10/22 1600 Intake Total 700 3150 Output Total 275 Balance 425 3150 Intake, IV 500 3150 Intake, Oral 200 0 Number 0 Bowel Movements Output, Urine 275 Patient 270 lb 250 lb Weight Weight Estimated Measurement Method Physical Exam General Appearance: Alert, Cooperative, No Acute Distress Cardiovascular: Normal S1, Normal S2 Lungs: Clear to Auscultation, Normal Air Movement Abdomen: Soft, No Tenderness Current Medications: Current Medications Sig/Rush Start time Last Medication Dose Route Stop Time Status Admin Acetaminophen 650 MG Q6PRN PRN 10/22 1145 AC 10/22 PO 2041 Cyanocobalamin/ 1 BAG ONCE ONE 10/22 1345 DC 10/22 Thiamine/Pyridoxine IV 10/22 2144 1453 Sodium Chloride 1,000 ML Digoxin 0.125 MG DAILY 10/23 1000 AC PO Digoxin 0.125 MG DAILY 10/22 1339 DC 10/22 PO 1453 Doxazosin Mesylate 2 MG DAILY 10/22 1339 AC 10/22 PO 1453 Folic Acid 1 MG DAILY 10/22 1137 DC PO Lorazepam 0 Q1P PRN 10/22 2230 AC 10/22 IV 2302 Lorazepam See Dose Q1P PRN 10/22 1345 DC Insts (1) IV Lorazepam 0 .STK-MED ONE 10/22 0946 DC .ROUTE Lorazepam 1 MG ONCE ONE 10/22 0930 DC 10/22 IV 10/22 0931 0943 Morphine Sulfate 2 MG Q4 PRN 10/23 0350 AC 10/23 IV 0405 Morphine Sulfate 2 MG Q6-PRN PRN 10/22 1415 DC 10/22 IV 2339 Morphine Sulfate 0 .STK-MED ONE 10/22 0907 DC .ROUTE Morphine Sulfate 4 MG ONCE ONE 10/22 0830 DC 10/22 IV 10/22 0831 0903 Nystatin 1 GARY TID PRN 10/22 2215 AC 10/22 TOP 2306 Sodium Chloride 1,000 ML .[id number] 10/23 0030 AC 10/23 IV 10/24 0309 0029 Sodium Chloride 1,000 ML .[id number] 10/22 1515 DC IV 10/23 1754 Sodium Chloride 1,000 ML BOLUS ONE 10/22 1245 DC 10/22 IV 10/22 1344 1300 Sodium Chloride 1,000 ML .[id number] 10/22 1145 DC 10/22 IV 10/23 1424 1213 Sodium Chloride 1,000 ML BOLUS ONE 10/22 1030 DC 10/22 IV 10/22 1229 1030 Sodium Chloride 1,000 ML BOLUS ONE 10/22 0830 DC 10/22 IV 10/22 1029 0903 Spironolactone 50 MG DAILY 10/23 1000 AC PO Thiamine HCl 100 MG DAILY 10/22 1138 DC PO Tramadol HCl 50 MG Q4P PRN 10/22 1415 AC 10/22 PO 1845 Dose Instructions: (1)Lorazepam: See admin criteria Last 24 Hrs of Lab/Calixto Results Last 24 Hrs of Labs/Mics: Laboratory Tests 10/22/16 2325: Lactic Acid 3.0 H 10/22/16 1808: Lactic Acid Cancelled 10/22/16 1551: 25-OH Vitamin D Total 34.9 10/22/16 1146: Lactic Acid 3.9 H 10/22/16 1140: Lactate Dehydrogenase Cancelled 10/22/1650: Urine Opiates Screen 673.00, Methadone Screen < 40, Barbiturate Screen < 60, Ur Phencyclidine Scrn < 6.00, Amphetamines Screen < 100, U Benzodiazepines Scrn < 85, Urine Cocaine Screen < 50, Urine Cannabis Screen < 5.00, Urine Color STRAW, Urine Clarity CLEAR, Urine pH 6.0, Ur Specific [place] 1.010, Urine Protein NEG, Urine Ketones NEG, Urine Nitrite NEG, Urine Bilirubin NEG, Urine Urobilinogen 0.2, Ur Leukocyte Esterase NEG, Ur Microscopic EXAM NOT REQUIRED, Urine Hemoglobin NEG, Urine Glucose NEG 10/22/16904: Lactic Acid 4.9 H, PT 59.0 *H, INR 5.72 *H, APTT 58 H, CBC w Diff NO MAN DIFF REQ, RBC 4.44 L, MCV 94.3 H, MCH 31.4 H, RDW 16.2 H, MPV 7.6, Gran % 61.5, Lymphocytes % 28.0, Monocytes % 8.6, Eosinophils % 1.3, Basophils % 0.6, Absolute Granulocytes 4.1, Absolute Lymphocytes 1.9, Absolute Monocytes 0.6, Absolute Eosinophils 0.1, Absolute Basophils 0, PUBS MCHC 33.2, Digoxin < 0.4 L 10/22/16 0824: Anion Gap 18 H, Estimated GFR > 60, BUN/Creatinine Ratio 10.0, Glucose 110 H, Calcium 8.9, Total Bilirubin 0.7, AST 34, ALT 39, Alkaline Phosphatase 57, Troponin I 0.01, Total Protein 6.5, Albumin 3.7, Globulin 2.8, Albumin/Globulin Ratio 1.3, Amylase < 30 L, Lipase 81, Serum Alcohol 209.0, Urine Color Cancelled, Urine Clarity Cancelled, Urine pH Cancelled, Ur Specific [place] Cancelled, Urine Protein Cancelled, Urine Ketones Cancelled, Urine Nitrite Cancelled, Urine Bilirubin Cancelled, Urine Urobilinogen Cancelled, Ur Leukocyte Esterase Cancelled, Ur Microscopic Cancelled, Urine Hemoglobin Cancelled, Urine Glucose Cancelled Microbiology 10/22 949 URINE ROUT: Urine Culture - RECD 10/22 904 BLOOD: Blood Culture - RECD 10/22 852 BLOOD: Blood Culture - RECD Assessment/Plan Assessment: 76-year-old gentleman with past medical history significant for dementia, hypertension, A. fib on Coumadin, neuropathy, severe peripheral vascular disease status post right leg above-knee amputation in 2008. BiBA for evaluation of unwitnessed fall. Vitals on admission MAXIMUM TEMPERATURE 97.6 heart rate 70 blood pressure 1 46/ 62, saturating 95% on room air. Lab significant for hyponatremia, increased anion gap metabolic acidosis increased lactic acid supratherapeutic INR at 5.7 to, troponin negative normal LFTs. EKG showed More. yousuf with a QTC of 454. Chest x-ray and CT head were unremarkable. He will be admitted to the general medicine floor on the following issues will be addressed: As Ranked By This Provider Problem List: 1. Gait instability Assessment/Plan D/D deconditioning exacerbated by decreased by mouth intake and alcoholism versus vascular versus Alzheimer's dementia colostomy secondary to worsening of his neuropathy. CT head unremarkable Follow-up vitamin D vitamin B12 PT to evaluate and treat 2. Lactic acidosis Assessment/Plan Metabolic acidosis with increased anion gap Most likely type B lactic acidosis as there is no clinical indication of sepsis or HF, most likely secondary to his alcoholism vs hypoperfusion (less likely as clinical euvolemic) Will hydrated and continue to trend lactic acid 3. A-fib Assessment/Plan will hold coumadin 2/2 to supratherapeutic INR, INR pending continue home dose of digoxin Qualifiers Atrial fibrillation type: chronic Qualified Code: I48.2 - Chronic atrial fibrillation 4. EtOH dependence Assessment/Plan IV ativan per KATHERYNWA will start IV banana bag and MVI utox neg 5. Severe depression Assessment/Plan psych on board, apprec recomendations Continue 1:1 sitter per ivonne 6. Skin lesion Assessment/Plan 2cm x 2cm friable exophytic pinkish leision on right upper shouler will need to be evaluated by dermatology, which can be done as outpatient 7. DVT prophylaxis Assessment/Plan supratherapeutic INR ALPs 8. DNR (do not resuscitate) 9. DNI (do not intubate) Problem List: 1. Lactic acidosis 2. Skin lesion 3. A-fib 4. EtOH dependence 5. Severe depression Pain Ratin Pain Location: generalized Pain Goal: Pain 4 or less Pain Plan: given 2 mg iv morphine Tomorrow's Labs & Rationales: jean claude PALACIOS MD,CONNER 10/23/16 1220: Attending MD Review Statement Attending Statement Attending MD Statement: examined this patient, discuss w/resident/PA/SOFTWARE ENGINEERING MANAGER, agreed w/resident/PA/SOFTWARE ENGINEERING MANAGER, reviewed EMR data (avail), discussed with nursing, discussed with case mgmt, amended to note Attending Assessment/Plan: Patient seen and examined. Resting comfortably and not in acute distress. Flat affect. No issues reported by nursing staff. He has no new complaints this morning. He is being evaluated by the physical therapy service. He'll be monitored through the weekend. If his physical status improves he will be discharged home. If not we'll consider discharge to a senior care facility for short-term rehabilitation.
[2016-10-23 07:01] VITALS: BP 130/62
[2016-10-23 07:40] LABS: ABSOLUTE BASOPHIL COUNT 0 /CUMM (0.0-0.2); ABSOLUTE EOSINOPHIL COUNT 0.1 /CUMM (0.0-0.7); ABSOLUTE GRANULOCYTE CT 3.8 /CUMM (1.4-6.5); ABSOLUTE LYMPH COUNT 1.7 /CUMM (1.2-3.4); ABSOLUTE MONOCYTE COUNT 0.8 /CUMM (0.10-0.60); BASOPHIL % 0.7 % (0.0-2.0); GRANULOCYTE % 58.4 % (42.2-75.2); MEAN CORPUSCULAR HGB 31.7 PG (27.0-31.0); MEAN CORPUSCULAR HGB CONC 33.3 G/DL (33.0-37.0); MEAN CORPUSCULAR VOLUME 95.3 FL (80.0-94.0); MEAN PLATELET VOLUME 7.8 FL (7.4-10.4); PLATELET COUNT 178 /CUMM (130-400); RBC DISTRIBUTION WIDTH 16.8 % (11.5-14.5); RED BLOOD CELL CT 3.88 /CUMM (4.70-6.10); WHITE BLOOD CELL COUNT 6.5 /CUMM (4.8-10.8)
--- NOTE | 2016-10-23 08:04 | NUR ---
LATE ENTRY FOR 0400 SPOKE WITH REGARDING PT CONTINUED C/O GENERALIZED BODY PAINS. SEE EMAR FOR MEDS GIVEN TO PT. SEE EMAR FOR CHANGE IN EMAR.
[2016-10-23 08:26] LABS: PT 19.4 SEC (9.4-12.5)
[2016-10-23] MEDS ORDERED: MUPIROCIN22 GM TOP (14:38)
[2016-10-23 14:54] VITALS: BP 160/90
[2016-10-23 23:02] VITALS: BP 158/98
[2016-10-24 03:00] VITALS: BP 152/88
[2016-10-24 07:00] VITALS: BP 157/68
[2016-10-24 08:00] VITALS: BP 130/62
--- NOTE | 2016-10-24 08:23 | PN- Housestaff ---
See Addendum Subjective Follow-up For: Gait instability/fall Supratherapeutic INR now resolved Elevated lactic acid Complaints: difficulty falling asleep Subjective: Interval history: Overnight there were no acute events. This morning Mr. Sue mentions that he had a hard time falling asleep due to multiple distractions. He denies any headache, dizziness, chest pain, palpitations, shortness of breath, nausea, abdominal pain, fevers or chills. Review of Systems Constitutional: Reports: see HPI. EENTM: Reports: no symptoms. Cardiovascular: Reports: no symptoms. Respiratory: Reports: no symptoms. Gastrointestinal: Reports: no symptoms. Musculoskeletal: Reports: see HPI. Objective Last 24 Hrs of Vital Signs/I&O Vital Signs Date Time Temp Pulse Resp B/P B/P Pulse O2 O2 Flow FiO2 Mean Ox Delivery Rate 10/24 0924 73 157/68 10/24 0700 98.7 73 20 157/68 95 10/24 0300 98.0 74 20 152/88 95 Room Air 10/23 2302 98.8 66 24 158/98 96 Room Air 10/23 1454 98.9 69 20 160/90 96 Room Air Intake & Output 10/24 1600 10/24 0800 10/24 0000 Intake Total 550 Output Total 350 Balance 200 Intake, IV 450 Intake, Oral 100 Output, Urine 350 Physical Exam General Appearance: Alert, Cooperative, No Acute Distress Skin: No Significant Lesion Skin Temp/Moisture Exam: Warm/Dry Sepsis Skin Exam (color): Normal for Ethnicity HEENT: Mucous Membr. moist/pink Cardiovascular: Normal S1, Normal S2, Irregularly irregular HR Lungs: Normal Air Movement, SLIGHT INSPIRATORY STRIDOR IN THE BASILAR REGIONS BILATERALLY Abdomen: Normal Bowel Sounds, Soft, No Tenderness Neurological: Normal Speech, Normal Tone, Left BKA Extremities: No Edema, Left BKA Current Medications: Current Medications Sig/Rush Start time Last Medication Dose Route Stop Time Status Admin Acetaminophen 650 MG Q6PRN PRN 10/22 1145 AC 10/22 PO 204 Cyanocobalamin 1,000 MCG DAILY 10/24 1052 AC PO Digoxin 0.125 MG DAILY 10/23 1000 AC 10/24 PO 09 Doxazosin Mesylate 2 MG DAILY 10/22 1339 AC 10/24 PO 0924 Lorazepam 0 Q1P PRN 10/22 2230 AC 10/22 IV 2302 Morphine Sulfate 2 MG Q4 PRN 10/23 0350 AC 10/24 IV 0713 Mupirocin 1 GARY DAILY 10/23 1445 AC 10/24 TOP 0929 Nystatin 1 GARY TID PRN 10/22 2215 AC 10/23 TOP 0830 Sodium Chloride 1,000 ML .[id number] 10/23 0030 DC 10/23 IV 10/24 0309 1351 Spironolactone 50 MG DAILY 10/23 1000 AC 10/24 PO 0923 Tramadol HCl 50 MG Q4P PRN 10/22 1415 AC 10/24 PO 0928 Warfarin Sodium 2 MG 1700 10/23 1818 DC 10/23 PO 10/23 1819 1855 Last 24 Hrs of Lab/Calixto Results Last 24 Hrs of Labs/Mics: Laboratory Tests 10/24/16 0632: PT 13.6 H, INR 1.30 H Assessment/Plan Assessment: 76-year-old gentleman with past medical history significant for dementia, hypertension, A. fib on Coumadin, neuropathy, severe peripheral vascular disease status post right leg above-knee amputation in 2008. BiBA for evaluation of unwitnessed fall. Significant for hyponatremia, elevated anion gap metabolic acidosis, supratherapeutic INR 5.7. EKG: Atrial fibrillation, QTC 404. Problem list: 1. Fall with history of gait instability 2. Supratherapeutic INR 3. Atrial fibrillation on Coumadin 4. Elevated lactic acid 5. Vitamin B12 253 6. Digoxin level < 0.4 7. EtOH dependence: Serum alcohol 209 8. Passive suicidal ideation secondary to morning the loss of function after BKA 9. Insomnia 1. Gait instability Assessment/Plan * D/D deconditioning exacerbated by decreased by mouth intake and alcoholism versus vascular versus Alzheimer's dementia colostomy secondary to worsening of his neuropathy\\ * We'll continue with PT during inpatient and follow-up recommendations prior to discharge * Vitamin B12 level of 253 on the lower end of normal. Will be inclined to start the patient on vitamin B12 1000mcg daily 2. Lactic acidosis Assessment/Plan * Metabolic acidosis with increased anion gap * Most likely type B lactic acidosis as there is no clinical indication of sepsis or HF, most likely secondary to his alcoholism vs hypoperfusion (less likely as clinical euvolemic) * Last lactic acid was 3.0. Will repeat today and if still elevated continue with fluid hydration 3. A-fib * INR 1.30 this morning * Dosing 4 mg Coumadin today, follow-up INR in the a.m. 4. EtOH dependence Assessment/Plan * CIWA scores have been between 0 and 2 * IV ativan PRN CIWA 5. Severe depression Assessment/Plan * Thyroid function tests pending * Despite his passive suicidal ideations, high risk factors for this patient include age above 65, depression, EtOH abuse, access to firearms * Psychiatry recommendations at this time: Outpatient referral for neurology in context of cognitive decline. Avoidance of BZ, opiate analgesics 6. Subtherapeutic digoxin level * Patient is on digoxin 125mcg daily. At this time there is no records showing a history of heart failure or recent follow-up with a autocad detailer. However, admission H&P indicates that he is seen by autocad detailer at [facility] ( Dr. Clemons). Consider obtaining records from patient's autocad detailer prior to discharge and dose adjustment on digoxin 7. Skin lesion Assessment/Plan 2cm x 2cm friable exophytic pinkish leision on right upper shouler will need to be evaluated by dermatology, which can be done as outpatient 8. Insomnia * Melatonin 5 mg 8. DVT prophylaxis Assessment/Plan supratherapeutic INR ALPs 9. DNR (do not resuscitate) 10. DNI (do not intubate) Problem List: 1. Fall 2. A-fib 3. Lactic acidosis Pain Ratin Pain Location: NA Pain Goal: Pain 4 or less Pain Plan: Pain pathway Tomorrow's Labs & Rationales: None required DVT/Prophylaxis: pharmacological Consulting Request: Consulting Specialty: Psychiatry
[2016-10-24 08:26] LABS: PT 13.6 SEC (9.4-12.5)
[2016-10-24 15:15] VITALS: BP 132/84
[2016-10-24 16:00] VITALS: BP 132/84
--- NOTE | 2016-10-24 19:04 | NUR ---
PATIENT CONTINUING TO REFUSE [employer]WISE, AND REPOSITIONING. EDUCATED ON IMPORTANCE AND BENEFIT. WILL CONTINUE TO ENCOURAGE.
--- NOTE | 2016-10-24 19:50 | NUR ---
[facility].
[2016-10-24 22:00] VITALS: BP 158/68
--- NOTE | 2016-10-25 07:21 | PN- Housestaff ---
ALYSSA MOSHER 10/25/16 0720: Subjective Follow-up For: Weakness Fall Subjective: Seen and examined patient this morning. Complains of pain in his left upper stump. States that he is unable to sleep properly at night. Discussed the options of short-term rehabilitation for him and he seemed more amenable to go there. Denies fever, chills, chest pain, shortness of breath, abdominal pain. Review of Systems Constitutional: Denies: chills, diaphoresis, fever, malaise, weakness, unexplained weight loss. Cardiovascular: Denies: chest pain, edema, orthopena, palpitations, peripheral edema, syncope. Respiratory: Denies: cough, hemoptysis, orthopnea, short of breath, sputum production, stridor, wheezing. Gastrointestinal: Denies: abdominal pain, bloating, constipation, diarrhea, distention, bowel incontinence, melena, nausea, bloody stool, changes in stool, vomiting, steatorrhea. Objective Last 24 Hrs of Vital Signs/I&O Vital Signs Date Time Temp Pulse Resp B/P B/P Pulse O2 O2 Flow FiO2 Mean Ox Delivery Rate 10/25 1201 Room Air 10/25 1053 Room Air 10/25 1022 69 130/80 10/25 0730 97.9 69 20 130/80 97 10/24 2200 97.8 67 18 158/68 94 Room Air 10/24 1600 99.2 70 20 132/84 10/24 1600 94 Room Air 10/24 1515 99.2 70 20 132/84 94 Room Air Intake & Output 10/25 1600 10/25 0800 10/25 0000 Intake Total 840 Output Total 150 200 Balance -150 640 Intake, Oral 840 Number 1 Bowel Movements Output, Urine 150 200 Physical Exam General Appearance: Alert, Oriented X3, Cooperative, flat affect Cardiovascular: Regular Rate, Normal S1, Normal S2 Lungs: Clear to Auscultation, Normal Air Movement Abdomen: Normal Bowel Sounds, Soft, No Tenderness Current Medications: Current Medications Sig/Rush Start time Last Medication Dose Route Stop Time Status Admin Acetaminophen 650 MG Q 3-4 HRS PRN PRN 10/25 1030 AC PO Acetaminophen 650 MG Q6PRN PRN 10/22 1145 DC 10/22 PO 2041 Baclofen 10 MG DAILY 10/25 1020 AC 10/25 PO 1307 Cyanocobalamin 1,000 MCG DAILY 10/24 1052 AC 10/25 PO 1021 Digoxin 0.125 MG DAILY 10/23 1000 AC 10/25 PO 1022 Doxazosin Mesylate 2 MG DAILY 10/22 1339 AC 10/25 PO 1022 Gabapentin 100 MG Q8 10/25 1200 AC 10/25 PO 1307 Lorazepam 0 Q1P PRN 10/22 2230 DC 10/22 IV 2302 Melatonin 5 MG AT BEDTIME 10/24 2200 AC 10/24 PO 2331 Mirtazapine 7.5 MG AT BEDTIME 10/25 2200 AC PO Morphine Sulfate 2 MG Q4 PRN 10/23 0350 DC 10/25 IV 0623 Mupirocin 1 GARY DAILY 10/23 1445 AC 10/25 TOP 1310 Nystatin 1 GARY TID PRN 10/22 2215 AC 10/23 TOP 0830 Patient Medication 1 ED .STK-MED ONE 10/25 1334 DC Teaching ED 10/25 1335 Spironolactone 50 MG DAILY 10/23 1000 AC 10/25 PO 1022 Tramadol HCl 50 MG Q4P PRN 10/22 1415 AC 10/25 PO 1339 Warfarin Sodium 4 MG COUMADIN 1700 10/25 1700 AC PO 10/25 2359 Warfarin Sodium 4 MG COUMADIN 1700 ONE 10/24 1700 DC 10/24 PO 10/24 1701 1606 Last 24 Hrs of Lab/Calixto Results Last 24 Hrs of Labs/Mics: Laboratory Tests 10/25/16 0635: PT 13.5 H, INR 1.29 H Assessment/Plan Assessment: 76-year-old gentleman with past medical history significant for dementia, hypertension, A. fib on Coumadin, neuropathy, severe peripheral vascular disease status post right leg above-knee amputation in 2008. BiBA for evaluation of unwitnessed fall. Significant for hyponatremia, elevated anion gap metabolic acidosis, supratherapeutic INR 5.7. EKG: Atrial fibrillation, QTC 404. Problem list: 1. Fall with history of gait instability 2. Supratherapeutic INR 3. Atrial fibrillation on Coumadin 4. Elevated lactic acid 6. Digoxin level < 0.4 7. EtOH dependence: Serum alcohol 209 8. Severe depression 9. Insomnia 1. Gait instability Assessment/Plan * D/D deconditioning exacerbated by decreased by mouth intake and alcoholism versus vascular versus Alzheimer's dementia vas worsening of his neuropathy. * Family meeting at 11:30am with , psychiatry, social work, case management , Dr. Archuleta and myself this morning around 11:30 am. As he is agreeable to go to [facility] decision was made to discharge him to [facility] with outpatient follow-up with psychiatry as well as neurology. His was very sure that although there is a shotgun in the house that he would not be able to access it. She also said that she'll ask her son to keep it in the [place] without him knowing. She did not seem to be concerned that he might hurt himself with it. However it was emphasized that regardless of the fact that he has never made an attempt in the past it did not mean that he would not do so in the future 2. Lactic acidosis Assessment/Plan * Metabolic acidosis with increased anion gap * Most likely type B lactic acidosis as there is no clinical indication of sepsis or HF, most likely secondary to his alcoholism vs hypoperfusion (less likely as clinical euvolemic) * trended down to normal 3. A-fib * INR 1.29 this morning * Dosing 4 mg Coumadin today, follow-up INR in the a.m. 4. EtOH dependence Assessment/Plan * CIWA scores have been between 0 and 2 * will dc IV ativan PRN CIWA 5. Severe depression Assessment/Plan * Thyroid function tests normal * Despite his passive suicidal ideations, high risk factors for this patient include age above 65, depression, EtOH abuse, access to firearms * Psychiatry recommendations at this time: Outpatient referral for neurology in context of cognitive decline. Avoidance of BZ, opiate analgesics 6. Subtherapeutic digoxin level on admission * Patient is on digoxin 125mcg daily. outpatient follow with his card dealer at [facility] (Dr. Clemons). 7. Skin lesion Assessment/Plan 2cm x 2cm friable exophytic pinkish leision on right upper shouler will need to be evaluated by dermatology, which can be done as outpatient 8. Insomnia * will start patient on rozeram 7.5mg at bedtime today. 8. DVT prophylaxis Assessment/Plan supratherapeutic INR ALPs 9. DNR (do not resuscitate) 10. DNI (do not intubate) Problem List: 1. Gait instability 2. Lactic acidosis 3. Skin lesion 4. A-fib 5. EtOH dependence 6. Severe depression Pain Ratin Pain Location: Left leg stump Pain Goal: Pain 4 or less Pain Plan: Will add baclofen along with gabapentin 100 mg 3 times a day Tomorrow's Labs & Rationales: INR Consulting Request: Consulting Specialty: Psychiatry ELISEO BROWNING MD 10/25/16 1108: Attending MD Review Statement Attending Statement Attending MD Statement: examined this patient, discuss w/resident/PA/VIDEO JOURNALIST, agreed w/resident/PA/VIDEO JOURNALIST, reviewed EMR data (avail), discussed with nursing, discussed with case mgmt Attending Assessment/Plan: Pt is severely depressed and continues to have a sitter. As per psych the sitter is more for fall issues and impulsivity rather than active suicidal ideation. He has A. fib on Coumadin came in with a supratherapeutic INR that has now normalized and we are dosing his INR. He has a left AKA and peripheral vascular disease and the plan is a family meeting today at 11:30 to discuss discharge disposition.
[2016-10-25 07:30] VITALS: BP 130/80
[2016-10-25 08:41] LABS: PT 13.5 SEC (9.4-12.5)
--- NOTE | 2016-10-25 11:29 | PN- Psychiatry ---
Assessment/Plan Impression: Identifying Info: 76-year-old male w/ hx of atrial fibrillation currently on warfarin and digitoxin, hypertension and chronic pain, left below the knee amputation, cognitive decline, who presented to [facility] emergency department by ambulance status post fall on 10/22/2016. Patient lives at home with of 50 years, who is his primary caregiver. CC: "My body's not what it used to be." HPI: Patient seen at 11:15AM by this fiction and nonfiction prose writer. Patient's , Martina, was present at bedside. I informed them both I was called upon to conduct a capacity evaluation and risk assessment, given concern that patient has a shotgun at home, is intermittently expressing passive suicidal ideation and refusing medical team recommendation to go to short-term rehab facility. Patient reports continued frustration with his physical decline and impaired mobility, today. Stated he struggles to move around the house or go to the restroom on his own. Expressed concern about going to a short-term rehab, due to fear that nursing staff wouldn't adequately care for him. Upon further discussion about his short-term goals to improve his mobility, he agreed to treatment team's recommendation to transfer to short-term rehab facility. He denied active suicidal ideation, plans and intent. Reported intermittent passive suicidal thoughts, if the "good Lord took me, I wouldn't resist." Denies taking efforts to harm self. Denies auditory and visual hallucinations. No evidence of paranoia or delusional thought content. Reports poor sleep d/t disruptive roommate. States appetite is "little." Energy level, "low." Collateral received from Martina Sue, the patient's of 50 years. She states that in all the time she has known him, he has never expressed suicidal thoughts or made a suicide attempt. States that his sadness/depression is related to his physical decompensation. Admits to there being a shotgun present in the home, on the floor of a closet. She was resistant to removing the gun from the home or locking it up, as she expressed no safety concerns regarding it being in the home. She stated that the patient does not have the mobility to obtain access to the gun, or bend to the floor, or pull a trigger given imparied functioning of his fingers. The patient's was strongly advised to remove gun from the home or lock it up. She stated she would consider moving it to the basement where the patient could not access it. This was strongly advised. A family meeting was held together with medical attending Dr. Carmen Ibrahim, resident Dr. Gina Cobb, Charissa Cano, SINGER SONGWRITER, Jamel Hickey RNglobal risk management director, myself and the patient's , Martina Sue. The patient's treatment plan was reviewed/discussed. The patient's again expressed no safety concerns surrounding the patient's discharge. The patient's verbalized understanding of tx recommendation for gun to be removed from her home or locked up. Patient is agreeable to transition to short term rehab tx from hospital for further treatment. Suggestion: Plan: -recommend starting Remeron 7.5mg QPM to target insomnia/depression. -discussed w/ medical team, including Dr. Carmen Ibrahim, decision made to d/c 1: 1 sitter for fall risk. Patient does NOT require 1:1 sitter for suicide risk as patient is not actively suicidal. -patient's was STRONGLY advised to remove shotgun from home. She verbalized understanding. This conversation should be continued at short-term rehab facility. -recommend that short-term rehab facility scheduled an outpatient appointment for patient at [facility] prior to discharge from their facility: [place] [id number] -to be seen by consult tomorrow prior to discharge. Subjective Subjective: Brief ROS Gait: impaired Sleep: poor Appetite: poor Energy: low IADLs/ADLs: w/ assist Objective Last 24 Hrs of Vital Signs/I&O Vital Signs Date Time Temp Pulse Resp B/P B/P Pulse O2 O2 Flow FiO2 Mean Ox Delivery Rate 10/25 1053 Room Air 10/25 1022 69 130/80 10/25 0730 97.9 69 20 130/80 97 10/24 2200 97.8 67 18 158/68 94 Room Air 10/24 1600 99.2 70 20 132/84 10/24 1600 94 Room Air 10/24 1515 99.2 70 20 132/84 94 Room Air Intake & Output 10/25 1600 10/25 0800 10/25 0000 Intake Total 840 Output Total 150 200 Balance -150 640 Intake, Oral 840 Number 1 Bowel Movements Output, Urine 150 200 Mental Status Exam Presentation/Appearance: Cooperative with evaluation. Hospital garb. Orientation: Oriented to self and place. Sensorium: Awake and alert Eye contact: Appropriate Affect: Somewhat blunted but congruent with stated mood Mood: "alright" Depression: endorses Anxiety: denies Thought Content: - Endorses passive SI. Denies plan, intent. States and also believes he will not kill himself. - Denies Hopeless/Helpless Thoughts; denies HI, VH, AH, PI. Thought Process: linear, goal directed Speech: normal in rate, tone, volume Judgment: fair Insight: fair Cognition: grossly intact Memory: some deficits Attention/Concentration: grossly intact Abstractions:[place]
--- NOTE | 2016-10-25 12:22 | NUR ---
Sw invited to a team meeting by ARYAN Mccullough Cm. Sw attended meeting with , ASUNCION, SACHA psych and pt's spouse. Discusssed several medical issues and that pt may have an MRI today. Pt is agreeable to go to [email or web address] and spouse is agrees to plan as well. Cm will assit pt in obtaining a local bed so spouse can easily visit pt. Discussed Pt having fire arms in his home and pt making comments he wishes God would take him. Spouse Reports pt has never tried to hurt himself and she does not feel he would. Spouse reports she will speak with her son regarding removing them or moving them to the basement where pt could not get them. Sw and spouse cont to speak after the meeting. Spouse spoke of Pt's cognitive difficulties. sw provided support and validated her feelings. we also discussed knowing that pt has a cognitive deficite she should not always trust his judgements and demands. Education on homecare and how she can tell him it is coming vs asking him if he wants it. Spouse with significant health issues particapted in a discussion with sw on her own self care . spouse reports she was able to get a good night sleep last night, the first in months. Spouse plans to visit pt daily but, looks forward to others sharing in her responsibility. Pt has 2 son's one lives in a usp in [place] and has CP and Autism. He has limited ability to speak. He visits their home regularly for a week at a time. Pt's other son lives in [place] and helps his parents regualrly. Pt's spouse spoke of transportation and gettng in and out of the house being difficult for them. [facility] transit can help once out of the house for low cost. Spouse also having difficult pushing pt on wheel chair. Spouse tearful at times when speaking of current situation. support provided. Sw available upon request. Spouse was encouraged to have followup for pt when he leaves [facility] [[email or web address]] but that will be difficult. Pt has had coumadin drawals at home in the past.
--- NOTE | 2016-10-25 15:08 | MRI REPORT ---
EXAMINATION: MR BRAIN WITHOUT CONTRAST CLINICAL INFORMATION: Evaluate for stroke. Weakness and confusion. COMPARISON: CT head 10/22/2016. TECHNIQUE: MRI of the brain without contrast was obtained using routine sequences. FINDINGS: There are a few scattered nonspecific foci of T2 FLAIR signal hyperintensity within the periventricular white matter that most likely represent a chronic manifestation of small vessel ischemia. There is no acute territorial infarct. No pathological magnetic susceptibility artifact. Intracranial vascular flow voids are grossly maintained. There is no intracranial mass effect or midline shift. No abnormal extra axial collection. Lateral and third ventricles are proportionate to the subarachnoid spaces. No hydrocephalus. Midline structures including the cervicomedullary junction are normal. Bone marrow signal intensity is normal. There is no mastoid or middle ear effusion. Visualized paranasal sinuses are well-aerated with the exception of trivial mucosal thickening within ethmoid air cells. Globes and orbits are symmetric. IMPRESSION: There are a few scattered chronic small vessel ischemic changes within the periventricular white matter. No evidence of acute territorial infarct or hemorrhage.
[2016-10-25 15:32] VITALS: BP 158/77
[2016-10-25] MEDS ORDERED: GABAPENTIN100 M2 PO (18:04)
[2016-10-25] MEDS ORDERED: REMERON15 M2 PO (18:04)
[2016-10-25] MEDS ORDERED: TRAMADOL HCL50 M1 PO (18:04)
--- NOTE | 2016-10-25 18:09 | Patient Discharge Instructions ---
Discharge Instructions General Discharge Information You were seen/treated for: weakness fall supratherapeutic INR Special Instructions: follow up with your PCP/intermediate manager Dr. Clemons within two weeks of discharge follow up with psychiatry within one week of discharge follow up with neurologist within two weeks of discharge please check BEP, Digoxin and potassium level in one week. please check INR on and dose coumadin accordingly. -recommend that short-term rehab facility scheduled an outpatient appointment for patient at [facility] prior to discharge from their [place]: [place] [address] Diet Recommended Diet: Heart Healthy Additional DIET Information: diet needs to be chopped, assist of one for eating. Acute Coronary Syndrome Inclusion Criteria At DC or during hospital stay patient has or had the following: ACS DIAGNOSIS No Discharge Core Measures Meds if any: Prescribed or Continued at Discharge Meds if any: NOT Prescribed or Continued at Discharge Congestive Heart Failure Inclusion Criteria At DC or during hospital stay patient has or had the following: CHF DIAGNOSIS No Discharge Core Measures Meds if any: Prescribed or Continued at Discharge Meds if any: NOT Prescribed or Continued at Discharge Cerebrovascular accident Inclusion Criteria At DC or during hospital stay patient has or had the following: CVA/TIA Diagnosis No Discharge Core Measures Meds if any: Prescribed or Continued at Discharge Meds if any: NOT Prescribed or Continued at Discharge Venous thromboembolism Inclusion Criteria VTE Diagnosis No VTE Type NONE VTE Confirmed by (Test) NONE Discharge Core Measures - Per Current guidelines, there needs to be overlap - treatment for the first 5 days of Warfarin therapy. - If discharged on Warfarin prior to 5 days of - overlap therapy, the patient will need to be - assessed for post discharge needs including - *Post discharge parental anticoagulation - *Warfarin and/or parental anticoagulation education - *Follow up date to check INR post discharge At least 5 days overlap therapy as Inpatient No Meds if any: Prescribed or Continued at Discharge Note: Overlap Therapy is Warfarin and Anticoagulant Meds if any: NOT Prescribed or Continued at Discharge
--- NOTE | 2016-10-25 18:36 | Discharge Summary ---
Visit Information Visit Dates Admission Date: 10/22/16 Discharge Date: 10/26/16 Hospital Course Course Attending Physician: NALLELY ALEJO,ELISEO Ness Primary Care Physician: SHEIKH Troy NORMAN Consulting Request: Consulting Specialty: Psychiatry Hospital Course: 76-year-old gentleman with past medical history significant for dementia, hypertension, A. fib on Coumadin, neuropathy, severe peripheral vascular disease status post right leg above-knee amputation in 2008. BiBA to [facility] for evaluation of unwitnessed fall and progressive weakness since the past one week. Vitals on admission MAXIMUM TEMPERATURE 97.6 heart rate 70 blood pressure 1 46/ 62, saturating 95% on room air. Lab significant for hyponatremia, increased anion gap metabolic acidosis increased lactic acid supratherapeutic INR at 5.7 to, troponin negative, normal LFTs. EKG showed A. fib with a QTC of 454. Chest x-ray and CT head were unremarkable. He was admitted to the general medicine floor and the following issues were addressed: Gait instability/weakness Considered differentials were; deconditioning exacerbated by decreased by mouth intake and alcoholism versus vascular versus Alzheimer's dementia worsening of his neuropathy. MRI of the head showed few scattered chronic small vessel ischemic changes within the periventricular white matter. No evidence of acute territorial infarct or hemorrhage. Pain management He was initially followed by Dr. Lindo; however due to mobility issues he has not been back to his clinic since Feb 2016. During admission he was given initally given morphine which was later switched to Tyelenol and Baclofen. Gabapentin was also started on this admission and can be increased as tolerated. Lactic acidosis Thought to be most likely type B lactic acidosis secondary to his chronic alcoholoism. There was no clinical indication of sepsis or Heart Failure. Given IV hydration and lactic Acid was trended till it normalized. Atrial fibrillation coumadin held for supratherapeutic INR then dosed daily per INR, NR on and dose coumadin accordingly. Subtherapeutic digoxin level on admission digoxin level <0.4 , he was continued home dose of digoxin, please check BEP, Digoxin and potassium level in one week. EtOH dependence Initally started on IV ativan per CIWA which was discontinued on day 4 of admission as he showed not signs of withdrawal. Severe depression Pyschiatry was consulted as on admission he endorsed depression and passive suicidality. A family meeting was held as there was a concern about a shotgun in the house. His was very sure that although there was a shotgun in the house that he would not be able to access it. She also said that she'll ask her son to keep it in the [place] without him knowing. She did not seem to be concerned that he might hurt himself with it. However it was emphasized to her that regardless of the fact that he has never made an attempt in the past it did not mean that he would not do so in the future and it was strongly recommended to have the gun removed from the house. Remeron 7.5 mg at bedtime was started for insomnia. Skin lesion 2cm x 2cm friable exophytic pinkish leision on right upper shouler. Required evalation by dermatology for malignancy as outpatient. Diet kept on heart healthy diet. He required his diet to be chopped and he is an assist of one for eating. Code status was DNR/ DNI Complications: none Allergies: Coded Allergies: ciprofloxacin (From CIPRO) (UNKNOWN 10/22/16) vancomycin (UNKNOWN 10/22/16) Significant Procedures: SERVICE DATE: 10/22/16-1018 EXAM TYPE: RAD - XRY-PORTABLE CHEST XRAY FINDINGS: The lungs are well expanded. There is a hazy opacity at the left lung base. No edema or effusion. No dense consolidation.. No pneumothorax. The cardiomediastinal silhouette is within normal limits. No acute osseous abnormality. IMPRESSION: Hazy left basilar opacity favors atelectasis. No dense consolidation. SERVICE DATE: 10/22/16-1358 EXAM TYPE: CAT - CT HEAD WO IV CONTRAST FINDINGS: There is no evidence of acute intracranial hemorrhage or territorial infarction. No abnormal mass effect or midline shift is seen. Maurice to white matter differentiation is well preserved. No extra-axial fluid collections are identified. No hydrocephalus. Proportional prominence of the ventricles and sulcal spaces is consistent with mild volume loss. There is no abnormal attenuation within the brain parenchyma. The osseous structures and soft tissues are normal. The mastoid air cells and visualized portions of the paranasal sinuses are well aerated. IMPRESSION: No acute intracranial pathology. Mild volume loss. SERVICE DATE: 10/25/16- EXAM TYPE: MRI - MRI-HEAD W/O PHILOMENA FINDINGS: There are a few scattered nonspecific foci of T2 FLAIR signal hyperintensity within the periventricular white matter that most likely represent a chronic manifestation of small vessel ischemia. There is no acute territorial infarct. No pathological magnetic susceptibility artifact. Intracranial vascular flow voids are grossly maintained. There is no intracranial mass effect or midline shift. No abnormal extra axial collection. Lateral and third ventricles are proportionate to the subarachnoid spaces. No hydrocephalus. Midline structures including the cervicomedullary junction are normal. Bone marrow signal intensity is normal. There is no mastoid or middle ear effusion. Visualized paranasal sinuses are well-aerated with the exception of trivial mucosal thickening within ethmoid air cells. Globes and orbits are symmetric. IMPRESSION: There are a few scattered chronic small vessel ischemic changes within the periventricular white matter. No evidence of acute territorial infarct or hemorrhage. Disposition Summary Disposition Principal Diagnosis: Gait instability Additional Diagnosis: atrial fibrillation supratherapeutic INR pain control subtherapeutic digoxin level severe depression Discharge Disposition: SNF Discharge Instructions General Discharge Information Code Status: Do Not Resucitate/Intubat Patient's Diet: Heart healthy, assist of 1 Patient's Activity: as tolerated Follow-Up Instructions/Appts: follow up PCP/dental professional Dr. Clemons within two weeks of discharge follow up with psychiatry within one week of discharge follow up with neurologist within two weeks of discharge please check BEP, Digoxin and potassium level in one week. please check INR on 10/28/16 and dose coumadin accordingly. Recommend that short-term rehab facility scheduled an outpatient appointment for patient at [facility] prior to discharge from their facility: [place] [address] Medications at Discharge Discharge Medications: Continue taking these medications: Warfarin Sodium (Warfarin Sodium) 2 MG TABLET 1 Tablet ORAL 5 PM Qty = 100 Baclofen (Baclofen) 10 MG TABLET 1 Tablet ORAL DAILY Qty = 240 Digoxin (Digoxin) 125 MCG TABLET 1 Tablet ORAL DAILY Qty = 90 Doxazosin Mesylate (Doxazosin Mesylate) 2 MG TABLET 1 Tablet ORAL DAILY Qty = 135 Folic Acid (Folic Acid) 1 MG TABLET 1 Tablet ORAL DAILY Qty = 90 Spironolactone (Spironolactone) 50 MG TABLET 1 Tablet ORAL DAILY Qty = 60 Mupirocin (Mupirocin) 2 % OINT...G. 1 Application On the skin Every Day Qty = 22 Instructions: apply to affected area(s): LEFT SCAPULA AREA GROWTH Start taking the following new medications: Tramadol HCl (Tramadol HCl) 50 MG TABLET 50 Milligram ORAL EVERY 4 HOURS NEEDED as needed for PAIN SCALE 4-6 ( MODERATE) Qty = 15 No Refills Gabapentin (Gabapentin) 100 MG CAPSULE 100 Milligram ORAL EVERY 8 HOURS Qty = 90 No Refills Mirtazapine (Remeron) 15 MG TABLET 7.5 Milligram ORAL AT BEDTIME Qty = 30 No Refills Copies To: SHEIKH Troy NORMAN
[2016-10-25 22:38] VITALS: BP 140/80
[2016-10-26 07:14] VITALS: BP 132/74
--- NOTE | 2016-10-26 07:17 | PN- Housestaff ---
ALYSSA MOSHER 10/26/16 0717: Subjective Follow-up For: Weakness Fall Subjective: Seen and examined patient. states he slept more last night. Does not report any side effects from Gabapentin. He had a bowel movement yesterday. Review of Systems Constitutional: Denies: chills, diaphoresis, fever, malaise, weakness, unexplained weight loss. Cardiovascular: Denies: chest pain, edema, orthopena, palpitations, peripheral edema, syncope. Respiratory: Denies: cough, hemoptysis, orthopnea, short of breath, sputum production, stridor, wheezing. Gastrointestinal: Denies: abdominal pain, bloating, constipation, diarrhea, distention, bowel incontinence, melena, nausea, bloody stool, changes in stool, vomiting, steatorrhea. Objective Last 24 Hrs of Vital Signs/I&O Vital Signs Date Time Temp Pulse Resp B/P B/P Pulse O2 O2 Flow FiO2 Mean Ox Delivery Rate 10/26 0714 97.7 61 19 132/74 96 10/25 2238 98.5 51 18 140/80 96 Room Air 10/25 1532 98.3 96 16 158/77 96 Room Air 10/25 1201 Room Air 10/25 1053 Room Air Intake & Output 10/26 1600 10/26 0800 10/26 0000 Intake Total 490 350 Output Total 500 Balance -10 350 Intake, IV 10 Intake, Oral 480 350 Number 0 1 Bowel Movements Output, Urine 500 Physical Exam General Appearance: Alert, Oriented X3, No Acute Distress, flat effect Cardiovascular: Regular Rate, Normal S1, Normal S2 Lungs: Clear to Auscultation, Normal Air Movement Current Medications: Current Medications Sig/Rush Start time Last Medication Dose Route Stop Time Status Admin Acetaminophen 650 MG Q 3-4 HRS PRN PRN 10/25 1030 AC 10/25 PO 2150 Baclofen 10 MG DAILY 10/25 1020 AC 10/25 PO 1307 Bisacodyl 10 MG DAILY PRN 10/25 1800 AC ID Cyanocobalamin 1,000 MCG DAILY 10/24 1052 AC 10/25 PO 1021 Digoxin 0.125 MG DAILY 10/23 1000 AC 10/25 PO 1022 Docusate Sodium 100 MG DAILY NEEDED PRN 10/25 1800 AC PO Doxazosin Mesylate 2 MG DAILY 10/22 1339 AC 10/25 PO 1022 Gabapentin 100 MG Q8 10/25 1200 AC 10/26 PO 0634 Melatonin 5 MG AT BEDTIME 10/24 2200 DC 10/24 PO 2331 Mirtazapine 7.5 MG AT BEDTIME 10/25 2200 AC 10/25 PO 2150 Mupirocin 1 GARY DAILY 10/23 1445 AC 10/25 TOP 1310 Nystatin 1 GARY TID PRN 10/22 2215 AC 10/23 TOP 0830 Patient Medication 1 ED .STK-MED ONE 10/25 1334 DC Teaching ED 10/25 1335 Polyethylene Glycol 17 GM DAILY 10/25 1754 AC PO Ramelteon 8 MG ONE TIME ONE 10/25 2030 DC 10/25 PO 10/25 2031 2150 Senna/Docusate Sodium 1 TAB BID 10/25 2200 AC 10/25 PO 2150 Spironolactone 50 MG DAILY 10/23 1000 AC 10/25 PO 1022 Tramadol HCl 50 MG Q4P PRN 10/22 1415 AC 10/26 PO 0634 Warfarin Sodium 4 MG COUMADIN 1700 10/25 1700 DC 10/25 PO 10/25 2359 1657 Assessment/Plan Assessment: 76-year-old gentleman with past medical history significant for dementia, hypertension, A. fib on Coumadin, neuropathy, severe peripheral vascular disease status post right leg above-knee amputation in 2008. BiBA for evaluation of unwitnessed fall. Significant for hyponatremia, elevated anion gap metabolic acidosis, supratherapeutic INR 5.7. EKG: Atrial fibrillation, QTC 404. Problem list: 1. Fall with history of gait instability 2. Supratherapeutic INR 3. Atrial fibrillation on Coumadin 4. Elevated lactic acid 6. Digoxin level < 0.4 7. EtOH dependence: Serum alcohol 209 8. Severe depression 9. Insomnia 1. Gait instability * D/D deconditioning exacerbated by decreased by mouth intake and alcoholism versus vascular versus Alzheimer's dementia vas worsening of his neuropathy. * tolerating Gabapentin, titrate as tolerated as outpatient. * continue to work with PT, stable for discharge to [facility] today 2. Lactic acidosis * Metabolic acidosis with increased anion gap * Most likely type B lactic acidosis as there is no clinical indication of sepsis or HF, most likely secondary to his alcoholism vs hypoperfusion (less likely as clinical euvolemic) * trended down to normal 3. A-fib * INR pending 5. Severe depression * Thyroid function tests normal * Despite his passive suicidal ideations, high risk factors for this patient include age above 65, depression, EtOH abuse, access to firearms * MRI of the head showed few scattered chronic small vessel ischemic changes within the periventricular white matter. No evidence of acute territorial infarct or hemorrhage. * Psychiatry recommendations at this time: Outpatient referral for neurology in context of cognitive decline. Avoidance of BZ, opiate analgesics 6. Subtherapeutic digoxin level on admission * Patient is on digoxin 125mcg daily. outpatient follow with his accounts receivable representative at [facility] (Dr. Clemons). 7. Skin lesion 2cm x 2cm friable exophytic pinkish leision on right upper shouler will need to be evaluated by dermatology, which can be done as outpatient 8. Insomnia * continue rozeram 7.5mg at bedtime. 8. DVT prophylaxis Assessment/Plan coumadin ALPs 9. DNR (do not resuscitate) 10. DNI (do not intubate) Problem List: 1. Gait instability 2. Lactic acidosis 3. Severe depression 4. A-fib 5. EtOH dependence Pain Ratin Pain Location: na Pain Goal: Pain 4 or less Pain Plan: current regimen Tomorrow's Labs & Rationales: none required Consulting Request: Consulting Specialty: Psychiatry ELISEO BROWNING MD 10/26/16 0904: Attending MD Review Statement Attending Statement Attending MD Statement: examined this patient, discuss w/resident/PA/ALLOPATHIC DOCTOR, agreed w/resident/PA/ALLOPATHIC DOCTOR, discussed with family, reviewed EMR data (avail), discussed with nursing, discussed with case mgmt Attending Assessment/Plan: Patient was stable overnight without a sitter. The plan is for him to go to [facility] today. The MRI didn't show any acute changes and showed some chronic small vessel ischemic changes. Given his severe depression and fall risk we are not going to start any antiplatelet agents and keep him on Coumadin for now. We stressed in the discharge summary and W 10 and also spoke to the that he needs close outpatient psychiatry follow-up to treat his depression aggressively an outpatient neuro follow-up. He is going to continue with his dig and other medications with outpatient follow-up of INR and BEP.
[2016-10-26 11:07] LABS: PT 15.7 SEC (9.4-12.5)
[2016-10-26 12:33] VITALS: BP 132/74
--- NOTE | 2016-10-26 13:05 | NUR ---
REPORT GIVEN TO VERN BAEZA AT [facility]
== END 2016-10-26 14:36 | DRG 641 ==
LOC: ERH 08:18 → 2NB 13:23 → ERHI 13:23 → ENRESERV 15:32 → ENTRNSPT 16:31 → EDTRNSPT 16:46 → 2NB 16:57 → CMPTRNSPT 22:20 → 2NB 10-25 13:38 → ENPENDDIS 10-26 08:59 → 2NB 10-26 14:36
PROVIDERS: Internal Medicine; Physician Assistant; Student in an Organized Health Care Education/Training Program; ADMIT Internal Medicine
DX: E87.2 Acidosis (principal); R45.851 Suicidal ideations; I48.2 Chronic atrial fibrillation; G62.9 Polyneuropathy, unspecified; I10 Essential (primary) hypertension; F32.9 Major depressive disorder, single episode, unspecified; E66.9 Obesity, unspecified; E87.1 Hypo-osmolality and hyponatremia; R26.9 Unspecified abnormalities of gait and mobility; F10.20 Alcohol dependence, uncomplicated; Z66 Do not resuscitate; Z68.36 Body mass index [BMI] 36.0-36.9, adult; Z89.512 Acquired absence of left leg below knee; L98.9 Disorder of the skin and subcutaneous tissue, unspecified; I73.9 Peripheral vascular disease, unspecified; Z79.01 Long term (current) use of anticoagulants
CPT/HCPCS: 2NBSP; 70551; 36415; 80307; 81003; 82436; 87040; 87086; 93005; 93010; 96361; 96374; 96375; 97110-GO; 97116-GO; 97161-GP; 97530-GO; 99291; G0480